=== PATIENT | female | born 1955 | race Caucasian/White ===

== ENCOUNTER 2019-10-01 14:54 | Inpatient (IN) | payer MEDICARE, MEDICAID ==
[~2019-10-01] VITALS: Ht 152.4 cm; Wt 41.7 kg
[~2019-10-01 14:54] MED LIST: AMOXICILLIN500 MG PO; AUGMENTIN 500M500 MG PO; MOTRIN400 MG PO
[2019-10-01 15:03] VITALS: BP 175/82
[2019-10-01] MEDS ORDERED: ATIVAN1 MG ORAL (15:08)
[2019-10-01] MEDS ORDERED: Thorazine ORAL (15:08)
[2019-10-01] MEDS ORDERED: ZOLOFT25 MG ORAL (15:08)
--- NOTE | 2019-10-01 15:10 | NUR ---
ED Nurse Note: patient brought into ED by ambulance from home c/o nausea and vomiting since 09/26/19, c/o abdominal pain, patient c/o back pain and buttocks pain as well. patient is alert awake x4, on a hospital gown, on a kiln remover. patient reports vaginal bleeding red blood for 1 month. patient reports she could not see her OBGYN.
[2019-10-01] MEDS ORDERED: Lidocaine 2% Visc 15ml soln ORAL ONE (15:15)
[2019-10-01] MEDS ORDERED: Mylanta II UD 30ml ORAL ONE (15:15)
[2019-10-01] MEDS ORDERED: Dicyclomine HCl 10mg/5ml oral soln ORAL ONE (15:15)
--- NOTE | 2019-10-01 15:18 | Emergency Room Report ---
History of Present Illness General Chief Complaint: Nausea, Vomiting, and Diarrhea Source: Patient Present Illness HPI 63-year-old female presents ED for abdominal pain. Started 5 days ago. Cramping, 7 out of 10, nonradiating. Also complaining of vomiting diarrhea. Denies recent travel. Denies recent antibiotic use. No other aggravating relieving factors. Denies any other associated symptoms Allergies: Coded Allergies: PENICILLINS (Verified Allergy, Intermediate, rash, 07/28/12) BEET (Verified Allergy, Unknown, 10/01/19) PROPOFOL (Verified Allergy, Unknown, 10/01/19) Patient History Past Medical History: psych hx Past Surgical History: none Pertinent Family History: none Social History: Denies: smoking, alcohol use, drug use Now: No Immunizations: UTD Reviewed Nursing Documentation: PMH: Agreed; PSxH: Agreed Nursing Documentation-PMH Past Medical History: No History, Except For History Of Psychiatric Problem: Yes - anxiety, depression, schizophrenia Review of Systems All Other Systems: negative except mentioned in HPI Physical Exam Vital Signs Date Time Temp Pulse Resp B/P (MAP) Pulse Ox O2 Delivery O2 Flow Rate FiO2 10/01/19 15:03 98.8 90 13 175/82 99 Room Air Sp02 EP Interpretation: reviewed, normal General Appearance: no apparent distress, alert, GCS 15, non-toxic, thin Head: normocephalic, atraumatic Eyes: bilateral eye normal inspection, bilateral eye PERRL ENT: hearing grossly normal, normal pharynx, no angioedema, normal voice Neck: full range of motion, supple/symm/no masses Respiratory: chest non-tender, lungs clear, normal breath sounds, speaking full sentences Cardiovascular #1: regular rate, rhythm, no edema Cardiovascular #2: 2+ carotid (R), 2+ carotid (L), 2+ radial (R), 2+ radial (L) , 2+ dorsalis pedis (R), 2+ dorsalis pedis (L) Gastrointestinal: normal bowel sounds, soft, non-distended, no guarding, no rebound, tenderness Rectal: deferred Genitourinary: normal inspection, no CVA tenderness Musculoskeletal: back normal, normal range of motion, gait/station normal, non- tender Neurologic: alert, motor strength/tone normal, oriented x3, sensory intact, responsive, speech normal Psychiatric: judgement/insight normal, memory normal, mood/affect normal, no suicidal/homicidal ideation Reflexes: 3+ bicep (R), 3+ bicep (L), 3+ tricep (R), 3+ tricep (L), 3+ knee (R) , 3+ knee (L) Skin: no rash Lymphatic: no adenopathy Medical Decision Making Diagnostic Impression: Primary Impression: Colitis Additional Impressions: Renal failure Qualified Codes: N19 - Unspecified kidney failure Vaginal bleeding Fibroid Dehydration ER Course Hospital Course 63-year-old female presents ED with abdominal pain, vomiting and diarrhea. also has vaginal bleeding. differential colitis, anemia, dehydration Clinical course Placed on stretcher. After initial history and physical I ordered labs, IV fluids, ultrasound Labs - leukocytosis noted, Hb/Hct stable. Na 126, BUN 98, Cr 9.1 US - fibroid CT A/P - no acute process identified Patient given IV hydration. Given antibiotics. Case discussed with Dr. Martin and he agreed to accept the patient to his service for further care and support I feel this is a highly complex case requiring extensive working including EKG/ Rhythm strip, Xray/CT/US, Blood/urine lab work, repeat exams while in ED, and administration of strong opiates/narcotics for pain control, admission to hospital or close patient follow up. Diagnosis - colitis, renal failure, vaginal bleeding, fibroid, dehydration Patient admitted to telemetry in serious condition Labs Test 10/01/19 15:10 10/01/19 15:55 White Blood Count 20.1 K/UL (4.8-10.8) Red Blood Count 3.94 M/UL (4.20-5.40) Hemoglobin 10.3 G/DL (12.0-16.0) Hematocrit 30.7 % (37.0-47.0) Mean Corpuscular Volume 78 FL (80-99) Mean Corpuscular Hemoglobin 26.0 PG (27.0-31.0) Mean Corpuscular Hemoglobin Concent 33.4 G/DL (32.0-36.0) Red Cell Distribution Width 13.4 % (11.6-14.8) Platelet Count 318 K/UL (150-450) Mean Platelet Volume 7.4 FL (6.5-10.1) Neutrophils (%) (Auto) % (45.0-75.0) Lymphocytes (%) (Auto) % (20.0-45.0) Monocytes (%) (Auto) % (1.0-10.0) Eosinophils (%) (Auto) % (0.0-3.0) Basophils (%) (Auto) % (0.0-2.0) Differential Total Cells Counted 100 Neutrophils % (Manual) 90 % (45-75) Lymphocytes % (Manual) 5 % (20-45) Monocytes % (Manual) 3 % (1-10) Eosinophils % (Manual) 1 % (0-3) Basophils % (Manual) 1 % (0-2) Band Neutrophils 0 % (0-8) Platelet Estimate Adequate Platelet Morphology Normal Red Blood Cell Morphology Normal Prothrombin Time 10.7 SEC (9.30-11.50) Prothromb Time International Ratio 1.0 (0.9-1.1) Activated Partial Thromboplast Time 32 SEC (23-33) Sodium Level 126 MMOL/L (136-145) Potassium Level 4.6 MMOL/L (3.5-5.1) Chloride Level 89 MMOL/L (98-107) Carbon Dioxide Level 16 MMOL/L (21-32) Anion Gap 21 mmol/L (5-15) Blood Urea Nitrogen 91 mg/dL (7-18) Creatinine 9.8 MG/DL (0.55-1.30) Estimat Glomerular Filtration Rate 4.0 mL/min (>60) Glucose Level 116 MG/DL (74-106) Calcium Level 7.9 MG/DL (8.5-10.1) Total Bilirubin 0.3 MG/DL (0.2-1.0) Aspartate Amino Transf (AST/SGOT) 31 U/L (15-37) Alanine Aminotransferase (ALT/SGPT) 14 U/L (12-78) Alkaline Phosphatase 98 U/L (46-116) Total Protein 6.4 G/DL (6.4-8.2) Albumin 2.8 G/DL (3.4-5.0) Globulin 3.6 g/dL Albumin/Globulin Ratio 0.8 (1.0-2.7) Lipase 82 U/L (73-393) Urine Color Pale yellow Urine Appearance Clear Urine pH 6.5 (4.5-8.0) Urine Specific [place] 1.005 (1.005-1.035) Urine Protein Negative (NEGATIVE) Urine Glucose (UA) Negative (NEGATIVE) Urine Ketones Negative (NEGATIVE) Urine Blood 1+ (NEGATIVE) Urine Nitrite Negative (NEGATIVE) Urine Bilirubin Negative (NEGATIVE) Urine Urobilinogen Normal MG/DL (0.0-1.0) Urine Leukocyte Esterase Negative (NEGATIVE) Urine RBC 0-2 /HPF (0 - 2) Urine WBC 0-2 /HPF (0 - 2) Urine Squamous Epithelial Cells Few /LPF (NONE/OCC) Urine Bacteria Few /HPF (NONE) CT/MRI/US Diagnostic Results CT/MRI/US Diagnostic Results #1: Imaging Test Ordered: Pelvic US Impression Findings: There is a fundal hypoechoic lesion measuring approximately 2.2 x 2.8 cm probably a fibroid. The endometrium is 9 mm and appears normal. Neither ovary is identified. There is a moderate degree of free fluid within the cul-de-sac. The uterus measures approximately 9 x 6.6 x 4.5 cm. IMPRESSION: Suspected fundal fibroid. Nonidentification of the ovaries Ascites. This should be further evaluated since the patient is postmenopausal. CT/MRI/US Diagnostic Results #2: Imaging Test Ordered: CT A/P Impression FINDINGS: Lungs: Hyperlucent patchy areas the lung bases consistent with emphysema noted. Patient is cachectic. There is moderate to severe bilateral hydroureteronephrosis. The ureters are poorly demonstrated on this study. There is a Alvarado catheter present within the urinary bladder which is also poorly demonstrated. There is air in the bladder. The patient is extremely cachectic. There is very little intra- abdominal fat which limits evaluation and no oral contrast or intravenous contrast was given further limiting evaluation. There is a mild degree of ascites noted around the liver and suggestion of ascites along the right paracolic gutter and pelvis. The uterus appears to be present but not evaluated well. Loops of bowel are present but the not evaluated well and there is no compelling evidence for bowel obstruction. Aortoiliac calcifications are present. Solid organs are not evaluated adequately. IMPRESSION: Moderate to severe bilateral hydroureteronephrosis. The level of obstruction is unknown and not elucidated adequately on this examination with poor demonstration of the ureters. No obvious stones seen. The urinary bladder is not distended to account for this. Alvarado catheter is present but the bladder is not well demonstrated either. Mild ascites. Emphysematous changes at the lung bases. Anasarca Cachexia Very limited study due to combination of factors including the lack of intravenous and oral contrast as well as cachexia and the absence of intra-abdominal fat. Liver: Unremarkable Gallbladder/biliary system: No gallstones are identified. There is no evidence of intrahepatic or extrahepatic biliary ductal dilatation. Spleen: Unremarkable Pancreas: Unremarkable Kidneys/Bladder: No definite stone or hydronephrosis are identified. The urinary bladder is unremarkable.. Adrenal glands: Unremarkable Bowel: Unremarkable. Aorta/IVC: Unremarkable Peritoneum: There is no free fluid. Bones: Unremarkable IMPRESSION: No acute findings Note: Evaluation of solid organs is limited on non contrast imaging. The CT scanner at [facility] is accredited by the [employer] and the scans are performed using dose optimization techniques as appropriate to a performed exam including Automatic Exposure control. Last Vital Signs Date Time Temp Pulse Resp B/P (MAP) Pulse Ox O2 Delivery O2 Flow Rate FiO2 10/01/19 15:03 98.8 90 13 175/82 (113) 99 Room Air Status: improved Disposition: ADMITTED INPATIENT Condition: Serious Milind Jeff MD Oct 01, 2019 15:18
--- NOTE | 2019-10-01 15:24 | NUR ---
ED Nurse Note: pelvic U/S being done at bedside.
[2019-10-01] MEDS: Morphine Sulfate 2mg/ml Inj(IV/IM USE ONLY) IVP ONE ×2 (15:30→15:42)
[2019-10-01 15:32] LABS: HEMATOCRIT 30.7 % (37.0-47.0); HEMOGLOBIN 10.3 G/DL (12.0-16.0); MEAN CORPUSCULAR VOLUME 78 FL (80-99); PLATELET COUNT 318 K/UL (150-450); RED BLOOD COUNT 3.94 M/UL (4.20-5.40); RED CELL DISTRIBUTION WIDTH 13.4 % (11.6-14.8); WHITE BLOOD COUNT 20.1 K/UL (4.8-10.8)
[2019-10-01 15:41] LABS: ALANINE AMINOTRANSFERASE 14 U/L (12-78); ALBUMIN 2.8 G/DL (3.4-5.0); ALBUMIN/GLOBULIN RATIO 0.8 (1.0-2.7); ALKALINE PHOSPHATASE 98 U/L (46-116); ANION GAP 21 mmol/L (5-15); ASPARTATE AMINO TRANSFERASE 31 U/L (15-37); BILIRUBIN,TOTAL 0.3 MG/DL (0.2-1.0); BLOOD UREA NITROGEN 91 mg/dL (7-18); CALCIUM 7.9 MG/DL (8.5-10.1); CARBON DIOXIDE 16 MMOL/L (21-32); CHLORIDE 89 MMOL/L (98-107); CREATININE 9.8 MG/DL (0.55-1.30); POTASSIUM 4.6 MMOL/L (3.5-5.1); SODIUM 126 MMOL/L (136-145)
[2019-10-01 16:35] LABS: APPEARANCE,URINE CLEAR; BILIRUBIN, URINE NEGATIVE (NEGATIVE); COLOR,URINE PALE YELLOW; GLUCOSE, URINE (UA) NEGATIVE (NEGATIVE); KETONES,URINE NEGATIVE (NEGATIVE); LEUKOCYTE ESTERASE ,URINE NEGATIVE (NEGATIVE); NITRITE,URINE NEGATIVE (NEGATIVE); PH,URINE 6.5 (4.5-8.0); PROTEIN,URINE NEGATIVE (NEGATIVE); UROBILINOGEN,URINE NORMAL MG/DL (0.0-1.0)
--- NOTE | 2019-10-01 16:40 | NUR ---
ED Nurse Note: patient taken to CT scan
--- NOTE | 2019-10-01 16:47 | NUR ---
ED Nurse Note: patient came back from CT scan via gurney.
--- NOTE | 2019-10-01 16:59 | Diagnostic Imaging Report ---
Indication:Lower abdominal and pelvic pain Technique: Grayscale and duplex Doppler imaging of the pelvis performed utilizing a transabdominal and endovaginal scan. Comparison: None Findings: There is a fundal hypoechoic lesion measuring approximately 2.2 x 2.8 cm probably a fibroid. The endometrium is 9 mm and appears normal. Neither ovary is identified. There is a moderate degree of free fluid within the cul-de-sac. The uterus measures approximately 9 x 6.6 x 4.5 cm. IMPRESSION: Suspected fundal fibroid. Nonidentification of the ovaries Ascites. This should be further evaluated since the patient is postmenopausal.
--- NOTE | 2019-10-01 17:04 | NUR ---
ED Nurse Note: patient is having a vaginal bleeding, red clots noted, Dr. Jeff at bedside examining as well.
--- NOTE | 2019-10-01 17:10 | Diagnostic Imaging Report ---
INDICATION: Abdominal pain TECHNIQUE: Continuous helical transaxial imaging of the abdomen and pelvis was obtained from the lung bases to the pubic symphysis. No intravenous contrast was administered. Coronal 2-D reformats were also obtained. Automatic Exposure Control was utilized. Total Dose length Product (DLP): 129.[address] Dose Index Volume (CTDIvol): 2.8 mGy Comparison: none FINDINGS: Lungs: Hyperlucent patchy areas the lung bases consistent with emphysema noted. Patient is cachectic. There is moderate to severe bilateral hydroureteronephrosis. The ureters are poorly demonstrated on this study. There is a Alvarado catheter present within the urinary bladder which is also poorly demonstrated. There is air in the bladder. The patient is extremely cachectic. There is very little intra-abdominal fat which limits evaluation and no oral contrast or intravenous contrast was given further limiting evaluation. There is a mild degree of ascites noted around the liver and suggestion of ascites along the right paracolic gutter and pelvis. The uterus appears to be present but not evaluated well. Loops of bowel are present but the not evaluated well and there is no compelling evidence for bowel obstruction. Aortoiliac calcifications are present. Solid organs are not evaluated adequately. IMPRESSION: Moderate to severe bilateral hydroureteronephrosis. The level of obstruction is unknown and not elucidated adequately on this examination with poor demonstration of the ureters. No obvious stones seen. The urinary bladder is not distended to account for this. Alvarado catheter is present but the bladder is not well demonstrated either. Mild ascites. Emphysematous changes at the lung bases. Anasarca Cachexia Very limited study due to combination of factors including the lack of intravenous and oral contrast as well as cachexia and the absence of intra-abdominal fat. Liver: Unremarkable Gallbladder/biliary system: No gallstones are identified. There is no evidence of intrahepatic or extrahepatic biliary ductal dilatation. Spleen: Unremarkable Pancreas: Unremarkable Kidneys/Bladder: No definite stone or hydronephrosis are identified. The urinary bladder is unremarkable.. Adrenal glands: Unremarkable Bowel: Unremarkable. Aorta/IVC: Unremarkable Peritoneum: There is no free fluid. Bones: Unremarkable IMPRESSION: No acute findings Note: Evaluation of solid organs is limited on non contrast imaging. The CT scanner at [facility] is accredited by the [employer] and the scans are performed using dose optimization techniques as appropriate to a performed exam including Automatic Exposure control.
--- NOTE | 2019-10-01 17:56 | NUR ---
ED Nurse Note: dinner tray provided for the patient as ordered by Dr Jeff
--- NOTE | 2019-10-01 18:58 | NUR ---
ED Nurse Note: patient's pad changed, patient had 1 pad saturated with red blood. patient kept clean and dry, blankets provided as requested. Dr. Jeff notified for patient reporting +1 swelling on bilateral ankle. Dr Jeff notified for patient's urine output.
--- NOTE | 2019-10-01 19:08 | NUR ---
HAND-OFF: Report given to Trey MITTAL.
[2019-10-01 19:15] VITALS: BP 170/90
--- NOTE | 2019-10-01 19:16 | NUR ---
ED Nurse Note: received report from Edie MITTAL. pt vss, nad, calm and resting in bed. will continue to monitor patient
--- NOTE | 2019-10-01 20:06 | NUR ---
ED Nurse Note: damian removed per ermd order
--- NOTE | 2019-10-01 20:09 | NUR ---
ED Nurse Note: gave report to rn for tele. patient is on bedside comode
--- NOTE | 2019-10-01 20:15 | NUR ---
TRANSFER TO FLOOR: Patient transferred to accompanied by lele rees via [facility] in stable condition as ordered, per dr. Martin . Report given to rn for . Belongings sent with patient
[2019-10-01 20:30] VITALS: BP 152/81
--- NOTE | 2019-10-01 20:30 | NUR ---
NURSE NOTES: Received report from DAXA Yang. Patient was transferred from ED to Telemetry via gurney accompanied by 2 staff member without any incident. Patient is awake, not in cardiorespiratory distress noted, able to make needs known. A/Ox4. Denies pain at this time. Patient was transferred to hospital bed via draw sheet method. Placed on tele box, SSSS Addendum: 10/02/19 at 0250 by Mulu Gonzalez RN Wrong entry
--- NOTE | 2019-10-01 20:30 | NUR ---
NURSE NOTES: Received report from DAXA Yang. Patient was transferred from ED to Telemetry via gurney accompanied by 2 staff member without any incident. Patient is awake, not in cardiorespiratory distress noted, able to make needs known. A/Ox4. Denies pain at this time. Patient was transferred to hospital bed via draw sheet method. Placed on tele box, SR on the monitor, 96 bpm. Checked IV site and flushed. No erythema, bleeding or infiltration noted. Belongings list checked with transferring RN. Body assessment done without any skin issues. Bed at lowest position, brakes on, siderailsx2. Call light within reach. Will continue to monitor. Dr. Margaret Martin placed in admitting orders. Noted and carried out.
[2019-10-01] MEDS: Sertraline 50mg tab ORAL SCH (21:51)
[2019-10-01] MEDS: LORazepam 1mg tab ORAL PRN (21:52)
[2019-10-01] MEDS: chlorproMAZINE 10mg tab ORAL SCH (21:52)
[2019-10-01] MEDS: metroNIDAZOLE 500mg tab ORAL SCH (22:08)
[2019-10-02] VITALS: BP 139/76
--- NOTE | 2019-10-02 02:53 | NUR ---
NURSE NOTES: Resting throughout the night. No significant change of condition noted. Will continue to monitor.
[2019-10-02 04:00] VITALS: BP 130/72
[2019-10-02] MEDS ORDERED: Ciprofloxacin 500mg tab ORAL SCH (06:00)
[2019-10-02] MEDS: metroNIDAZOLE 500mg tab ORAL SCH ×3 (06:45→21:12)
--- NOTE | 2019-10-02 07:15 | NUR ---
NURSE NOTES: pt in bed resting, food tray is at bedside. Pt AOX4, she is not reporting any pain. Continued personnel monitor, no signs of cardiac or respiratory distress at this time. Bed is locked and in lowest position, bed alarm is on, side rails up x2. Call light is within reach. Will continue to monitor pt.
[2019-10-02 07:16] LABS: ANION GAP 20 mmol/L (5-15); BLOOD UREA NITROGEN 85 mg/dL (7-18); CALCIUM 6.8 MG/DL (8.5-10.1); CARBON DIOXIDE 13 MMOL/L (21-32); CHLORIDE 95 MMOL/L (98-107); CHOLESTEROL 98 MG/DL (< 200); CREATININE 9.7 MG/DL (0.55-1.30); HDL CHOLESTEROL 23 MG/DL (40-60); POTASSIUM 4.7 MMOL/L (3.5-5.1); SODIUM 128 MMOL/L (136-145); TRIGLYCERIDES 77 MG/DL (30-150)
--- NOTE | 2019-10-02 07:16 | NUR ---
HAND-OFF: Report given to DAXA Baird. Plan of care endorsed.
[2019-10-02 08:00] VITALS: BP 128/75
--- NOTE | 2019-10-02 11:32 | General Progress Note ---
Assessment/Plan Assessment/Plan: GI CONSULT Assessment - Microcytic anemia - N/V, D, Abd pain - improved - abdominal distention on exam - GNR bacteremia - Renal failure - hyponatremia - psych d/o Recommendations - IVF - Renal w/u - check Fe - check OB - abx - EGD / colon when improved - stool cultures - EGD/Colon once better Thank you Corazon Silva MD Subjective Allergies: Coded Allergies: PENICILLINS (Verified Allergy, Intermediate, rash, 07/28/12) BEET (Verified Allergy, Unknown, 10/01/19) PROPOFOL (Verified Allergy, Unknown, 10/01/19) Objective Last 24 Hour Vital Signs Date Time Temp Pulse Resp B/P (MAP) Pulse Ox O2 Delivery O2 Flow Rate FiO2 10/02/19 04:00 96.8 99 18 130/72 (91) 98 10/02/19 04:00 105 10/02/19 00:00 125 10/02/19 00:00 97.0 120 18 139/76 (97) 97 10/01/19 22:00 Room Air 10/01/19 20:30 96.3 91 18 152/81 (104) 98 10/01/19 20:30 96 10/01/19 20:15 98.4 97 14 158/83 98 Room Air 10/01/19 19:15 98.4 97 14 170/90 98 Room Air 10/01/19 15:03 98.8 90 13 175/82 (113) 99 Room Air 10/01/19 15:03 98.8 90 13 175/82 99 Room Air Intake and Output 10/01/19 10/02/19 19:00 07:00 Intake Total 120 ml Output Total 100 ml Balance -100 ml 120 ml Intake Oral 120 ml Output Urine Total 100 ml # Voids 4 # Bowel Movements 5 Laboratory Tests 10/01/19 15:10: White Blood Count 20.1H, Red Blood Count 3.94L, Hemoglobin 10.3L, Hematocrit 30.7L, Mean Corpuscular Volume 78L, Mean Corpuscular Hemoglobin 26.0L, Mean Corpuscular Hemoglobin Concent 33.4, Red Cell Distribution Width 13.4, Platelet Count 318, Mean Platelet Volume 7.4, Neutrophils (%) (Auto) , Lymphocytes (%) ( Auto) , Monocytes (%) (Auto) , Eosinophils (%) (Auto) , Basophils (%) (Auto) , Differential Total Cells Counted 100, Neutrophils % (Manual) 90H, Lymphocytes % (Manual) 5L, Monocytes % (Manual) 3, Eosinophils % (Manual) 1, Basophils % ( Manual) 1, Band Neutrophils 0, Platelet Estimate Adequate, Platelet Morphology Normal, Red Blood Cell Morphology Normal, Prothrombin Time 10.7, Prothromb Time International Ratio 1.0, Activated Partial Thromboplast Time 32, Sodium Level 126L, Potassium Level 4.6, Chloride Level 89L, Carbon Dioxide Level 16L, Anion Gap 21H, Blood Urea Nitrogen 91H, Creatinine 9.8H, Estimat Glomerular Filtration Rate 4.0, Glucose Level 116H, Calcium Level 7.9L, Total Bilirubin 0.3 , Aspartate Amino Transf (AST/SGOT) 31, Alanine Aminotransferase (ALT/SGPT) 14, Alkaline Phosphatase 98, Total Protein 6.4, Albumin 2.8L, Globulin 3.6, Albumin/ Globulin Ratio 0.8L, Lipase 82 10/01/19 15:55: Urine Color Pale yellow, Urine Appearance Clear, Urine pH 6.5, Urine Specific [place] 1.005, Urine Protein Negative, Urine Glucose (UA) Negative, Urine Ketones Negative, Urine Blood 1+H, Urine Nitrite Negative, Urine Bilirubin Negative, Urine Urobilinogen Normal, Urine Leukocyte Esterase Negative, Urine RBC 0-2, Urine WBC 0-2, Urine Squamous Epithelial Cells Few, Urine Bacteria Few 10/01/19 17:30: Lactic Acid Level 0.60 10/02/19 05:10: Sodium Level 128L, Potassium Level 4.7, Chloride Level 95L, Carbon Dioxide Level 13L, Anion Gap 20H, Blood Urea Nitrogen 85H, Creatinine 9.7H, Estimat Glomerular Filtration Rate 4.1, Glucose Level 92, Calcium Level 6.8L, Hemoglobin A1c 5.4, Triglycerides Level 77, Cholesterol Level 98, LDL Cholesterol 58, HDL Cholesterol 23L, Cholesterol/HDL Ratio 4.3, Thyroid Stimulating Hormone (TSH) 1.088 Height (Feet): 5 Height (Inches): 0.00 Weight (Pounds): 92 Corazon Silva MD Oct 02, 2019 11:32
--- NOTE | 2019-10-02 11:40 | History & Physical ---
History and Physical History & Physicial HP dictated # [id number] Everardo Martin MD Oct 02, 2019 11:40
[2019-10-02 12:00] VITALS: BP 133/85
--- NOTE | 2019-10-02 13:34 | NUR ---
RD ASSESSMENT & RECOMMENDATIONS SEE CARE ACTIVITY FOR COMPLETE ASSESSMENT DAILY ESTIMATED NEEDS: Needs based on Renal 42.1kg 25-35 kcals/kg 2723-3009 total kcals .8-1.2 g protein/kg 34-50 g total protein Fluid per MD NUTRITION DIAGNOSIS: Altered nutrition related lab values r/t clinical status, renal failure as evidenced by low Na (128), elev BUN (85), elev Creat (9.7). CURRENT DIET: Full liquid PO DIET RECOMMENDATIONS: Advance as able to Regular diet/ texture per TRAFFIC AGENT ADDITIONAL RECOMMENDATIONS: 1) Monitor renal labs/ need for dietary restriction Monitor for fluid restriction (Na trending up 128) 2) Obtain a standing weight EMR wt: 82# Bed wt: 92# 3) Add ensure to meals, monitor lytes and need for Nepro.
[2019-10-02] MEDS ORDERED: Isovue-300 100ml vial INJ PRN (14:06)
[2019-10-02] MEDS ORDERED: Lidocaine 1% Plain 30 ml INJ PRN (14:06)
[2019-10-02] MEDS: Aztreonam Inj 0.5 GM in D5W 55 ML IVPB SCH ×2 (14:52→22:26)
[2019-10-02 16:00] VITALS: BP 145/83
--- NOTE | 2019-10-02 16:30 | History and Physical Report ---
DATE OF ADMISSION: 10/01/2019 CHIEF COMPLAINT: Abdominal pain, some vomiting and diarrhea. HISTORY OF PRESENT ILLNESS: This is a 63-year-old female with history of schizophrenia. She came to the emergency room for abdominal pain. She said it was only 1 day, but per records from the ER, she was complaining about 5-day history of cramping and some diarrhea and vomiting. She was admitted for further workup. Meanwhile, her blood cultures came back positive for gram negatives. So, she was admitted with diagnosis of sepsis. 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 It has been going on for a few months now. She denies history of any cancers, hypertension, diabetes, or heart problems. MEDICATIONS: Reviewed in EMR. ALLERGIES: Penicillin, propofol, and beet. SOCIAL HISTORY: The patient smokes a pack a day. Has been smoking for many years. No history of alcohol abuse. She states she lives by herself and takes care of herself. REVIEW OF SYSTEMS: As above. PHYSICAL EXAMINATION: GENERAL: The patient is a 63-year-old female, in no acute distress. VITAL SIGNS: Blood pressure is 113/72, pulse 99, temperature 96.8. HEENT: Pale conjunctivae. Anicteric sclerae. NECK: Supple. LUNGS: Clear to auscultation. HEART: S1, S2 without murmurs, rubs. ABDOMEN: Soft, nontender. EXTREMITIES: No cyanosis or edema. LABORATORY FINDINGS: The CBC shows a WBC of 20,000, hematocrit 30.7, hemoglobin is 10.3, platelets 318,000. Chemistry panel shows a sodium of 128, potassium 4.7, chloride 95, BUN is 85, creatinine 9.7, glucose is 92. ASSESSMENT: This is a 63-year-old female who is admitted with gram-negative bacteremia, sepsis. Possible source is GI tract. The patient had a benign urine, so I doubt this is caused by UTI. She has also acute renal failure, likely prerenal azotemia although ATN cannot be ruled out completely. She has hyponatremia with volume depletion. She has history of vaginal bleed, unclear etiology. needs to be ruled out. PLAN: The patient was started on IV fluids. IV antibiotics. The patient will be seen by GI as well as ID consultants. Labs will be followed closely. Further imaging study may be needed to find out the source of infection. Case was discussed with Dr. Silva. Everardo Martin M.D. DR: MIKE JOB#: [id number] CC:
--- NOTE | 2019-10-02 16:51 | Diagnostic Imaging Report ---
Indication: Abdominal distention Technique: Supine view of the abdomen Comparison: none Findings: There is moderate amount of gas in nondilated colon. Small bowel gas pattern is unremarkable. No masses or unusual calcifications Impression: No acute process
--- NOTE | 2019-10-02 19:15 | NUR ---
NURSE NOTES: Received report from DAXA Baird. Patient is asleep, arousable to name, lying in semi beck's; resting comfortably. A/Ox4. Denies pain at this time. No signs of acute distress noted. Checked IV site and flushed. No signs of erythema, bleeding or infiltration noted. Bed at lowest position, brakes on, siderailsx2. Call light within reach. Will continue to monitor.
--- NOTE | 2019-10-02 19:20 | NUR ---
NURSE NOTES: Received report from DAXA Baird. Patient is asleep, arousable to name, lying in semi beck's; resting comfortably. A/Ox4. Denies pain at this time. No signs of acute distress noted. Checked IV site and flushed. No erythema, bleeding or infiltration noted. Bed at lowest position, brakes on, siderailsx2. Call light within reach. Will continue to monitor.
--- NOTE | 2019-10-02 19:38 | NUR ---
HAND-OFF: Report given to Mulu/Jose. pt NPO after midnight consent has been signed for tomorrow's procedure.
[2019-10-02 20:00] VITALS: BP 144/68
[2019-10-02] MEDS: chlorproMAZINE 10mg tab ORAL SCH (21:12)
[2019-10-02] MEDS: LORazepam 1mg tab ORAL PRN (21:12)
[2019-10-02] MEDS: Sertraline 50mg tab ORAL SCH (21:12)
[2019-10-03] VITALS (7 sets, daily range): BP systolic 133–169; BP diastolic 77–92
--- NOTE | 2019-10-03 | NUR ---
NURSE NOTES: Placed patient on NPO at midnight.
--- NOTE | 2019-10-03 00:30 | Consultation ---
DATE OF CONSULTATION: 10/02/2019 GASTROENTEROLOGY CONSULTATION CONSULTING PHYSICIAN: Corazon Silva M.D. CHIEF COMPLAINT: I was asked to see this patient by Dr. Everardo Martin for evaluation of anemia and gastrointestinal symptoms. HISTORY OF PRESENT ILLNESS: The patient is a 63-year-old white woman who states she was in her usual state of health until about 5 days ago when she started noticing abdominal pain, nausea, vomiting, and diarrhea. She has had no contacts with the same symptoms. She came to the hospital emergency room for evaluation where she was found to be in renal failure and was also found to have profound anemia and microcytosis. The patient has not had a colonoscopy or endoscopy. She denies any hematochezia. She does have some abdominal distention still and is mildly uncomfortable from the gas feeling. PAST MEDICAL HISTORY: History of schizophrenia. FAMILY HISTORY: Positive for hypertension in mother. SOCIAL HISTORY: The patient is single. She smokes one pack of cigarettes a day. Does not drink alcohol. ALLERGIES: Penicillin as well as propofol. REVIEW OF SYSTEMS: Otherwise negative. PHYSICAL EXAMINATION: GENERAL: A well-developed, well-nourished woman, seen in her room. HEENT: Normocephalic and atraumatic. Sclerae anicteric. Oropharynx clear. NECK: Supple. CHEST: Clear to auscultation. CARDIOVASCULAR: Revealed a regular rate. ABDOMEN: Mildly distended and tympanitic. EXTREMITIES: Revealed no edema. LABORATORY DATA: Noted. ASSESSMENT: This patient presents with nausea, vomiting, diarrhea, dehydration, renal failure, hyponatremia, and microcytic anemia. She will need additional antibiotics and fluid resuscitation since her blood cultures already have grown gram-negative rods and therefore, she is septic and bacteremic. IV fluids can also be given with saline based constituents to both improvement of renal failure and also raise her sodium. Iron can be checked and given intravenously as needed. She will require an eventual endoscopy and colonoscopy to evaluate the GI tract, but I would hold off on that until her overall status is more stabilized. I will check her stools for culture and Clostridium difficile. Nutrition can be given by mouth as tolerated and advanced until the time of colonoscopy. RECOMMENDATIONS: Per above discussion and per orders written in the chart. Thank you for asking me to participate in the care of this patient. Corazon Silva M.D. DR: GALE JOB#: [id number] CC:
--- NOTE | 2019-10-03 02:05 | NUR ---
NURSE NOTES: Resting throughout the night. No significant change of condition noted. Will continue to monitor.
[2019-10-03] MEDS: metroNIDAZOLE 500mg tab ORAL SCH ×3 (06:18→20:56)
[2019-10-03] MEDS: Aztreonam Inj 0.5 GM in D5W 55 ML IVPB SCH ×3 (06:19→22:14)
[2019-10-03 07:07] LABS: HEMATOCRIT 24.9 % (37.0-47.0); HEMOGLOBIN 8.5 G/DL (12.0-16.0); MEAN CORPUSCULAR VOLUME 78 FL (80-99); PLATELET COUNT 274 K/UL (150-450); RED BLOOD COUNT 3.19 M/UL (4.20-5.40); RED CELL DISTRIBUTION WIDTH 12.2 % (11.6-14.8); WHITE BLOOD COUNT 14.6 K/UL (4.8-10.8)
[2019-10-03 07:13] LABS: % IRON SATURATION 16 % (15-50); IRON 34 ug/dL (50-175); TOTAL IRON BINDING CAPACITY 219 ug/dL (250-450)
[2019-10-03 07:29] LABS: ALANINE AMINOTRANSFERASE 15 U/L (12-78); ALBUMIN 2.2 G/DL (3.4-5.0); ALBUMIN/GLOBULIN RATIO 0.7 (1.0-2.7); ANION GAP 22 mmol/L (5-15); ASPARTATE AMINO TRANSFERASE 21 U/L (15-37); BILIRUBIN,TOTAL 0.3 MG/DL (0.2-1.0); BLOOD UREA NITROGEN 87 mg/dL (7-18); CALCIUM 7.3 MG/DL (8.5-10.1); CARBON DIOXIDE 11 MMOL/L (21-32); CHLORIDE 98 MMOL/L (98-107); POTASSIUM 4.7 MMOL/L (3.5-5.1); SODIUM 131 MMOL/L (136-145)
--- NOTE | 2019-10-03 07:34 | NUR ---
HAND-OFF: Report given to DAXA Baird. Plan of care endorsed.
[2019-10-03 07:40] LABS: ALKALINE PHOSPHATASE 91 U/L (46-116)
--- NOTE | 2019-10-03 07:58 | NUR ---
NURSE NOTES: pt NPO and ready for procedure. Pt is alert and oriented X4. No complains of pain at this time. 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 Bed in lowest position locked, rails up x2, bed alarm on for safety. Call light within reach. Will continue to monitor pt and follow plans of care.
--- NOTE | 2019-10-03 10:10 | Diagnostic Imaging Report ---
Indication: Acute renal failure Technique: Grayscale and duplex images of the kidneys, retroperitoneum, and bladder were obtained. Comparison: No comparison sonograms. Reference made to abdomen ultrasound dated 10/01/2019 Findings: Right kidney measures 11.2 cm in length. Left kidney measures 14 cm in length. Both kidneys demonstrate normal echogenicity. There is moderate to severe right, moderate left hydronephrosis. No focal abnormality. Normal inferior vena cava. Bladder is normal. Small amount of free intraperitoneal fluid is seen in the bladder Impression: Bilateral hydronephrosis, moderate to severe, etiology not demonstrated, also described on recent CT scan Incidental finding of trace ascites fluid.
--- NOTE | 2019-10-03 10:45 | Consultation ---
DATE OF CONSULTATION: 10/02/2019 INFECTIOUS DISEASE CONSULTATION CONSULTING PHYSICIAN: Gallito Martin M.D. PRIMARY ATTENDING PHYSICIAN: Everardo Martin M.D. REASON FOR CONSULT: Gram-negative sepsis. HISTORY OF PRESENT ILLNESS: This is a 63-year-old white female, admitted last night from home because of abdominal pain for 5 days, vomiting, and diarrhea alternating with constipation. Abdominal pain was 7/10 at the time of admission. The patient had leukocytosis of 20,000 and tachycardia with heart rate up to 125. She has abnormal vaginal bleeding. She states that she had menopause at the age of 49. No signs of anemia or acute renal failure. PAST MEDICAL HISTORY: Nothing significant, but the patient did not see any doctor for a while. ALLERGIES: Allergic to penicillin, propofol, and yeast. Allergy to penicillin is severe with shortness of breath. MEDICATIONS: Getting Cipro, Flagyl, sertraline, Thorazine, and temazepam. SOCIAL HISTORY: The patient is smoking for a long time. Currently, smoking 1 pack of cigarettes daily. Denies alcohol or drug abuse. Lives alone and is single. REVIEW OF SYSTEMS: gaining weight. No fever, no chills, but feels cold. No nausea. No vomiting. Alternating constipation and diarrhea, decrease in urine flow, vaginal bleeding. PHYSICAL EXAMINATION: VITAL SIGNS: Temperature 97, pulse 101, and blood pressure 128/75. GENERAL APPEARANCE: Seems to be thin and cachectic. HEAD AND NECK: Has no teeth and no denture. tongue discoloration. HEART: Tachycardic. LUNGS: Clear with decreased sounds. ABDOMEN: Soft and nontender. EXTREMITIES: Has no edema. NEUROLOGIC: Awake, alert, and oriented x3. No focal signs. LABORATORY AND DIAGNOSTIC DATA: WBC 20.1, hemoglobin 10.3, hematocrit 30.7, and platelets 78,000. Sodium 138, potassium 4.7, chloride 95, carbon dioxide is 13, BUN 85, and creatinine 9.7. Blood culture is growing gram-negative rods. UA was negative. CT scan of the abdomen and pelvis showed emphysema, severe bilateral hydroureteronephrosis, cachexia, and anasarca. The patient had a pelvic ultrasound that showed suspected fibroma & ascites. IMPRESSION: Gram-negative sepsis. The patient has renal failure with bilateral hydronephrosis and hydroureter, abnormal vaginal bleeding, penicillin allergy, hyponatremia, anemia, thrombocytopenia, emphysema, and cachexia. RECOMMENDATIONS: Continue with Flagyl. We will change Cipro to aztreonam. Consider Urology evaluation. Case was discussed with the primary doctor. At the end of my exam, I thank Dr. Everardo Martin for involving me in the care of this patient. Gallito Martin M.D. DR: JOJO JOB#: [id number] CC: JANE
--- NOTE | 2019-10-03 12:32 | NUR ---
CASE MANAGEMENT: INITIAL REVIEW 63YR OLD FEMALE BIBA FROM HOME CC: NAUSEA . VOMITING . DIARRHEA SI:COLITIS . HYDRONEPHROSIS . BILATERAL HYDROURETERONEPHROSIS 98.7 90 13 175/82 99% ON RA WBC 20.1 H/H 10.3/30.7 NA+126 CL- 89 CO2 16 ANION GAP 21 BUN 91 CREAT 9.8 BG 116 CA+ 7.9 IS:IVF NS BOLUS X1 IV FLAGYL X1 IV CIPROFLOXACIN IV ZOFRAN X1 MYLANTA PO X1 BENTYL PO X1 LIDOCAINE PO X1 IV PEPCID X1 US PELVIS -Suspected fundal fibroid, Ascites US TRANSVAGINAL - Suspected fundal fibroid.Ascites CT ABD/PEL-Moderate to severe bilateral hydroureteronephrosis, obstruction \: 2E TELE UNIT CASE MANAGEMENT: REVIEW 10/03/19 SI:COLITIS 98.7 90 13 175/82 99% ON RA WBC 14.6 H/H 8.5/24.9 IS:IV AZTREONAM TID IVF NS @150ML/HR PO FLAGYL TID THORAZINE PO QHS \: 2E TELE UNIT PLAN: X-RAY ABD-trace ascites fluid US RENAL - Bilateral hydronephrosis; trace ascites fluid. EGD/COLONOSCOPY TODAY REPLACE NEPHROSTOMY TUBE TODAY
--- NOTE | 2019-10-03 13:47 | Infectious Diseases Prog Note ---
Assessment/Plan Assessment/Plan IMPRESSION: Gram-negative sepsis. Renal failure Bilateral hydronephrosis and hydroureter, Abnormal vaginal bleeding, Penicillin allergy, Hyponatremia, Anemia, Thrombocytopenia, Emphysema, Cachexia. RECOMMENDATIONS: Continue with Flagyl & aztreonam. Will have nephrostomy tube placement today Subjective ROS Limited/Unobtainable: No Constitutional: Reports: no symptoms, other - feels better Respiratory: Reports: productive cough Gastrointestinal/Abdominal: Denies: nausea, vomiting, diarrhea Genitourinary: Reports: other - decreased urine Musculoskeletal: Reports: pain, other - low back pain Allergies: Coded Allergies: PENICILLINS (Verified Allergy, Intermediate, rash, 07/28/12) BEET (Verified Allergy, Unknown, 10/01/19) PROPOFOL (Verified Allergy, Unknown, 10/01/19) Objective Vital Signs Last 24 Hour Vital Signs Date Time Temp Pulse Resp B/P (MAP) Pulse Ox O2 Delivery O2 Flow Rate FiO2 10/03/19 09:00 Room Air 10/03/19 08:15 97.7 106 20 156/79 (104) 94 10/03/19 07:56 106 10/03/19 04:00 98.6 82 18 137/80 (99) 97 10/03/19 04:00 111 10/03/19 00:00 110 10/03/19 00:00 96.9 89 18 136/77 (96) 96 10/02/19 21:00 Room Air 10/02/19 20:00 97 10/02/19 20:00 97.3 98 18 144/68 (93) 94 10/02/19 16:00 97.5 93 18 145/83 (103) 95 10/02/19 16:00 90 Height (Feet): 5 Height (Inches): 0.00 Weight (Pounds): 92 General Appearance: no acute distress, cachetic HEENT: mucous membranes moist Respiratory/Chest: lungs clear Cardiovascular: normal rate Abdomen: soft, non tender Extremities: no edema Neurologic/Psychiatric: alert, oriented x 3, responsive Microbiology Date/Time Source Procedure Growth Status 10/01/19 17:30 Blood Blood Culture - Preliminary Gram Negative Bacillus 1 Resulted 10/01/19 17:30 Blood Blood Culture - Preliminary NO GROWTH AFTER 24 HOURS Resulted Laboratory Tests Test 10/03/19 06:02 White Blood Count 14.6 K/UL (4.8-10.8) H Red Blood Count 3.19 M/UL (4.20-5.40) L Hemoglobin 8.5 G/DL (12.0-16.0) L Hematocrit 24.9 % (37.0-47.0) L Mean Corpuscular Volume 78 FL (80-99) L Mean Corpuscular Hemoglobin 26.7 PG (27.0-31.0) L Mean Corpuscular Hemoglobin Concent 34.2 G/DL (32.0-36.0) Red Cell Distribution Width 12.2 % (11.6-14.8) Platelet Count 274 K/UL (150-450) Mean Platelet Volume 6.6 FL (6.5-10.1) Neutrophils (%) (Auto) % (45.0-75.0) Lymphocytes (%) (Auto) % (20.0-45.0) Monocytes (%) (Auto) % (1.0-10.0) Eosinophils (%) (Auto) % (0.0-3.0) Basophils (%) (Auto) % (0.0-2.0) Differential Total Cells Counted 100 Neutrophils % (Manual) 86 % (45-75) H Lymphocytes % (Manual) 6 % (20-45) L Monocytes % (Manual) 7 % (1-10) Eosinophils % (Manual) 1 % (0-3) Basophils % (Manual) 0 % (0-2) Band Neutrophils 0 % (0-8) Platelet Estimate Adequate Platelet Morphology Normal Hypochromasia 1+ Sodium Level 131 MMOL/L (136-145) L Potassium Level 4.7 MMOL/L (3.5-5.1) Chloride Level 98 MMOL/L (98-107) Carbon Dioxide Level 11 MMOL/L (21-32) L Anion Gap 22 mmol/L (5-15) H Blood Urea Nitrogen 87 mg/dL (7-18) H Creatinine 10.0 MG/DL (0.55-1.30) H Estimat Glomerular Filtration Rate 3.9 mL/min (>60) Glucose Level 111 MG/DL (74-106) H Calcium Level 7.3 MG/DL (8.5-10.1) L Iron Level 34 ug/dL (50-175) L Total Iron Binding Capacity 219 ug/dL (250-450) L Percent Iron Saturation 16 % (15-50) Unsaturated Iron Binding 185 ug/dL (112-346) Total Bilirubin 0.3 MG/DL (0.2-1.0) Aspartate Amino Transf (AST/SGOT) 21 U/L (15-37) Alanine Aminotransferase (ALT/SGPT) 15 U/L (12-78) Alkaline Phosphatase 91 U/L (46-116) Total Protein 5.2 G/DL (6.4-8.2) L Albumin 2.2 G/DL (3.4-5.0) L Globulin 3.0 g/dL Albumin/Globulin Ratio 0.7 (1.0-2.7) L Vitamin D 25-Hydroxy Pending 25-Hydroxy Vitamin D2 Pending 25-Hydroxy Vitamin D3 Pending Current Medications Medications (Trade) Dose Ordered Sig/Michael Route PRN Reason Start Time Stop Time Status Last Admin Dose Admin Aztreonam 0.5 gm/ Dextrose 55 ml @ 110 mls/hr Q8H IVPB 10/02/19 15:00 10/09/19 14:59 10/03/19 06:19 Chlorpromazine (Thorazine) 50 mg QHS ORAL 10/01/19 21:15 10/31/19 21:14 10/02/19 21:12 Dextrose (Dextrose 50%) 25 ml Q30M PRN IV Hypoglycemia 10/01/19 20:30 10/31/19 20:29 Dextrose (Dextrose 50%) 50 ml Q30M PRN IV Hypoglycemia 10/01/19 20:30 10/31/19 20:29 Iopamidol (Isovue-300 100ml) 100 ml ONCE PRN INJ constrast 10/02/19 14:06 10/03/19 23:59 Lidocaine HCl (Xylocaine 1% 30ml) 30 ml ONCE PRN INJ procedure 10/02/19 14:06 10/03/19 23:59 Lorazepam (Ativan) 1 mg HSPRN PRN ORAL For Anxiety 10/01/19 20:30 10/08/19 20:29 10/02/19 21:12 Metronidazole (Flagyl) 500 mg Q8HR ORAL 10/01/19 23:00 10/08/19 22:59 10/03/19 06:18 Ondansetron HCl (Zofran) 4 mg Q6H PRN IVP Nausea & Vomiting 10/01/19 20:30 10/31/19 20:29 Sertraline HCl (Zoloft) 25 mg QHS ORAL 10/01/19 21:00 10/31/19 20:59 10/02/19 21:12 Sodium Chloride 1,000 ml @ 150 mls/hr Q6H40M IVLG 10/01/19 21:00 10/31/19 20:59 10/03/19 06:18 Temazepam (Restoril) 15 mg HSPRN PRN ORAL Insomnia 10/01/19 21:00 10/08/19 20:59 Gallito Martin MD Oct 03, 2019 13:47
--- NOTE | 2019-10-03 13:55 | General Progress Note ---
Assessment/Plan Problem List: (1) ARF (acute renal failure) ICD Codes: N17.9 - Acute kidney failure, unspecified SNOMED: 34603364 (2) Obstructive uropathy ICD Codes: N13.9 - Obstructive and reflux uropathy, unspecified SNOMED: 8895866 (3) Colitis ICD Codes: K52.9 - Noninfective gastroenteritis and colitis, unspecified SNOMED: 35680088, 11815848 (4) Vaginal bleeding ICD Codes: N93.9 - Abnormal uterine and vaginal bleeding, unspecified SNOMED: 654099668, 681762791 (5) Anemia ICD Codes: D64.9 - Anemia, unspecified SNOMED: 728419567 Status Narrative no improvement in renal function Assessment/Plan: await nephrostomies discussed with dr Elizalde Discussed with pt about ARF and possible malignancy follow labs Subjective Allergies: Coded Allergies: PENICILLINS (Verified Allergy, Intermediate, rash, 07/28/12) BEET (Verified Allergy, Unknown, 10/01/19) PROPOFOL (Verified Allergy, Unknown, 10/01/19) Subjective feels ok Objective Last 24 Hour Vital Signs Date Time Temp Pulse Resp B/P (MAP) Pulse Ox O2 Delivery O2 Flow Rate FiO2 10/03/19 09:00 Room Air 10/03/19 08:15 97.7 106 20 156/79 (104) 94 10/03/19 07:56 106 10/03/19 04:00 98.6 82 18 137/80 (99) 97 10/03/19 04:00 111 10/03/19 00:00 110 10/03/19 00:00 96.9 89 18 136/77 (96) 96 10/02/19 21:00 Room Air 10/02/19 20:00 97 10/02/19 20:00 97.3 98 18 144/68 (93) 94 10/02/19 16:00 97.5 93 18 145/83 (103) 95 10/02/19 16:00 90 Intake and Output 10/02/19 10/03/19 19:00 07:00 Intake Total 880 ml Balance 880 ml Intake Oral 880 ml # Voids 3 2 Laboratory Tests 10/03/19 06:02: White Blood Count 14.6H, Red Blood Count 3.19L, Hemoglobin 8.5L, Hematocrit 24.9L, Mean Corpuscular Volume 78L, Mean Corpuscular Hemoglobin 26.7L, Mean Corpuscular Hemoglobin Concent 34.2, Red Cell Distribution Width 12.2, Platelet Count 274, Mean Platelet Volume 6.6, Neutrophils (%) (Auto) , Lymphocytes (%) ( Auto) , Monocytes (%) (Auto) , Eosinophils (%) (Auto) , Basophils (%) (Auto) , Differential Total Cells Counted 100, Neutrophils % (Manual) 86H, Lymphocytes % (Manual) 6L, Monocytes % (Manual) 7, Eosinophils % (Manual) 1, Basophils % ( Manual) 0, Band Neutrophils 0, Platelet Estimate Adequate, Platelet Morphology Normal, Hypochromasia 1+, Sodium Level 131L, Potassium Level 4.7, Chloride Level 98, Carbon Dioxide Level 11L, Anion Gap 22H, Blood Urea Nitrogen 87H, Creatinine 10.0H, Estimat Glomerular Filtration Rate 3.9, Glucose Level 111H, Calcium Level 7.3L, Iron Level 34L, Total Iron Binding Capacity 219L, Percent Iron Saturation 16, Unsaturated Iron Binding 185, Total Bilirubin 0.3, Aspartate Amino Transf (AST/SGOT) 21, Alanine Aminotransferase (ALT/SGPT) 15, Alkaline Phosphatase 91, Total Protein 5.2L, Albumin 2.2L, Globulin 3.0, Albumin /Globulin Ratio 0.7L, Vitamin D 25-Hydroxy [Pending], 25-Hydroxy Vitamin D2 [ Pending], 25-Hydroxy Vitamin D3 [Pending] Height (Feet): 5 Height (Inches): 0.00 Weight (Pounds): 92 Cardiovascular: normal rate Respiratory/Chest: lungs clear Edema: no edema noted Generalized Everardo Martin MD Oct 03, 2019 13:55
--- NOTE | 2019-10-03 14:42 | Pre-Procedure Note/Attestation ---
Pre-Procedure Note/Attestation Complete Prior to Procedure Planned Procedure: bilateral Procedure Narrative: Nephrostomy Indications for Procedure Pre-Operative Diagnosis: renal failure Attestation I attest that I discussed the nature of the procedure; its benefits; risks and complications; and alternatives (and the risks and benefits of such alternatives ), prior to the procedure, with the patient (or the patient's legal development representative). I attest that, if there was a reasonable possibility of needing a blood transfusion, the patient (or the patient's legal development representative) was given the [facility] standardized written summary, pursuant to the Abdullahi [place] Blood Safety Act ([place] Health and Safety Code # 1645, as amended). I attest that I re-evaluated the patient just prior to the surgery and that there has been no change in the patient's H&P, except as documented below: Josh Delacruz MD Oct 03, 2019 14:42
[2019-10-03] MEDS ORDERED: cefTRIAXone 1 GM in D5W 55 ML IVPB ONE (14:45)
[2019-10-03] MEDS ORDERED: Omnipaque-300 100ml vial INJ SCH (14:45)
[2019-10-03] MEDS ORDERED: Lidocaine 1% Plain 30 ml INJ PRN (14:45)
[2019-10-03] MEDS ORDERED: Omnipaque-300 100ml vial INJ PRN (15:00)
--- NOTE | 2019-10-03 15:20 | Brief Operative Note ---
Immediate Post Operative Note Operative Note Pre-op Diagnosis: renal failure Procedure: bilat nephrostomies Post-op Diagnosis: same as pre-op Findings: consistent w/pre-op dx studies Surgeon: Tere Zamora Anesthesia: local Specimen: none Complications: none Condition: stable Fluids: none Implant(s) used?: No Josh Zamora MD Oct 03, 2019 15:20
--- NOTE | 2019-10-03 16:10 | NUR ---
NURSE NOTES: Azactam given late because pt getting a procedure done.
--- NOTE | 2019-10-03 17:45 | Diagnostic Imaging Report ---
Indication: Renal failure, evidence of bilateral obstructive uropathy on prior imaging studies Technique: Informed consent obtained prior to commencement of the procedure. Prior imaging studies reviewed. Procedural timeout performed. Patient was given antibiotics. Total sterile technique, including sterile gloves and hand hygiene, hat, mask, sterile gown, large sterile drape, and preparation with 2% chlorhexidine utilized. Attention initially turned to the right kidney. Local anesthesia with 1% lidocaine. Under real-time ultrasound guidance, puncture posterior interpolar region calyx using 21-gauge [place] needle. Contrast injected under fluoroscopic guidance, confirming satisfactory needle placement. 0.018 guidewire inserted, followed by insertion of 6 [place]i [place] assembly. Dilator and stiffener were removed, 0.035 guidewire inserted, introducer removed. An 8.5 [place] nephrostomy catheter was passed over the guidewire. The 0.018 guidewire was removed. The pigtail was formed. Contrast was injected, confirming satisfactory placement of the tube. The catheter was fixed to the skin and placed to gravity drainage. Attention then turned to the left kidney. Local anesthesia with 1% lidocaine. Under real-time ultrasound guidance, puncture posterior interpolar region calyx using 21-gauge [place] needle. Contrast injected under fluoroscopic guidance, confirming satisfactory needle placement. 0.018 guidewire inserted, followed by insertion of 6 [place] assembly. Dilator and stiffener were removed, 0.035 guidewire inserted, introducer removed. An 8.5 [place] Cook nephrostomy catheter was passed over the guidewire. The 0.018 guidewire was removed. The pigtail was formed. Contrast was injected, confirming satisfactory placement of the tube. The catheter was fixed to the skin and placed to gravity drainage The patient tolerated the procedure well, without immediate complication. Total fluoroscopy time 105 seconds. Total dose area product 0.04133 mGym2 Number of images: 8 Comparison: none Findings: Intraprocedural images demonstrate moderate to severe hydronephrosis bilaterally. There is bilateral hydroureter which extends most of the way into the pelvis Impression: Successful placement of bilateral nephrostomy tubes, as described
--- NOTE | 2019-10-03 17:45 | Diagnostic Imaging Report ---
Indication: Renal failure, evidence of bilateral obstructive uropathy on prior imaging studies Technique: Informed consent obtained prior to commencement of the procedure. Prior imaging studies reviewed. Procedural timeout performed. Patient was given antibiotics. Total sterile technique, including sterile gloves and hand hygiene, hat, mask, sterile gown, large sterile drape, and preparation with 2% chlorhexidine utilized. Attention initially turned to the right kidney. Local anesthesia with 1% lidocaine. Under real-time ultrasound guidance, puncture posterior interpolar region calyx using 21-gauge [place] needle. Contrast injected under fluoroscopic guidance, confirming satisfactory needle placement. 0.018 guidewire inserted, followed by insertion of 6 [place] assembly. Dilator and stiffener were removed, 0.035 guidewire inserted, introducer removed. An 8.5 [place] Cook nephrostomy catheter was passed over the guidewire. The 0.018 guidewire was removed. The pigtail was formed. Contrast was injected, confirming satisfactory placement of the tube. The catheter was fixed to the skin and placed to gravity drainage. Attention then turned to the left kidney. Local anesthesia with 1% lidocaine. Under real-time ultrasound guidance, puncture posterior interpolar region calyx using 21-gauge [place] needle. Contrast injected under fluoroscopic guidance, confirming satisfactory needle placement. 0.018 guidewire inserted, followed by insertion of 6 [place] assembly. Dilator and stiffener were removed, 0.035 guidewire inserted, introducer removed. An 8.5 [place] Cook nephrostomy catheter was passed over the guidewire. The 0.018 guidewire was removed. The pigtail was formed. Contrast was injected, confirming satisfactory placement of the tube. The catheter was fixed to the skin and placed to gravity drainage The patient tolerated the procedure well, without immediate complication. Total fluoroscopy time 105 seconds. Total dose area product 0.08700 mGym2 Number of images: 8 Comparison: none Findings: Intraprocedural images demonstrate moderate to severe hydronephrosis bilaterally. There is bilateral hydroureter which extends most of the way into the pelvis Impression: Successful placement of bilateral nephrostomy tubes, as described
--- NOTE | 2019-10-03 17:53 | General Progress Note ---
Assessment/Plan Assessment/Plan: Assessment - Microcytic anemia - N/V, D, Abd pain - improved - abdominal distention on exam - GNR bacteremia - Renal failure / bilat hydro / nephrostomy - hyponatremia - psych d/o Recommendations - IVF - Renal f/u - check Fe - check OB - abx - stool cultures - EGD/Colon once better Subjective Allergies: Coded Allergies: PENICILLINS (Verified Allergy, Intermediate, rash, 07/28/12) BEET (Verified Allergy, Unknown, 10/01/19) PROPOFOL (Verified Allergy, Unknown, 10/01/19) Subjective above noted seen this am now s/p nephrostomies Objective Last 24 Hour Vital Signs Date Time Temp Pulse Resp B/P (MAP) Pulse Ox O2 Delivery O2 Flow Rate FiO2 10/03/19 15:34 105 18 2.0 10/03/19 09:00 Room Air 10/03/19 08:15 97.7 106 20 156/79 (104) 94 10/03/19 07:56 106 10/03/19 04:00 98.6 82 18 137/80 (99) 97 10/03/19 04:00 111 10/03/19 00:00 110 10/03/19 00:00 96.9 89 18 136/77 (96) 96 10/02/19 21:00 Room Air 10/02/19 20:00 97 10/02/19 20:00 97.3 98 18 144/68 (93) 94 Intake and Output 10/02/19 10/03/19 19:00 07:00 Intake Total 880 ml Balance 880 ml Intake Oral 880 ml # Voids 3 2 Laboratory Tests 10/03/19 06:02: White Blood Count 14.6H, Red Blood Count 3.19L, Hemoglobin 8.5L, Hematocrit 24.9L, Mean Corpuscular Volume 78L, Mean Corpuscular Hemoglobin 26.7L, Mean Corpuscular Hemoglobin Concent 34.2, Red Cell Distribution Width 12.2, Platelet Count 274, Mean Platelet Volume 6.6, Neutrophils (%) (Auto) , Lymphocytes (%) ( Auto) , Monocytes (%) (Auto) , Eosinophils (%) (Auto) , Basophils (%) (Auto) , Differential Total Cells Counted 100, Neutrophils % (Manual) 86H, Lymphocytes % (Manual) 6L, Monocytes % (Manual) 7, Eosinophils % (Manual) 1, Basophils % ( Manual) 0, Band Neutrophils 0, Platelet Estimate Adequate, Platelet Morphology Normal, Hypochromasia 1+, Sodium Level 131L, Potassium Level 4.7, Chloride Level 98, Carbon Dioxide Level 11L, Anion Gap 22H, Blood Urea Nitrogen 87H, Creatinine 10.0H, Estimat Glomerular Filtration Rate 3.9, Glucose Level 111H, Calcium Level 7.3L, Iron Level 34L, Total Iron Binding Capacity 219L, Percent Iron Saturation 16, Unsaturated Iron Binding 185, Total Bilirubin 0.3, Aspartate Amino Transf (AST/SGOT) 21, Alanine Aminotransferase (ALT/SGPT) 15, Alkaline Phosphatase 91, Total Protein 5.2L, Albumin 2.2L, Globulin 3.0, Albumin /Globulin Ratio 0.7L, Vitamin D 25-Hydroxy [Pending], 25-Hydroxy Vitamin D2 [ Pending], 25-Hydroxy Vitamin D3 [Pending] Height (Feet): 5 Height (Inches): 0.00 Weight (Pounds): 92 Objective WDWN NCAT supple CTA RRR Abd soft NT ND no edema Corazon Silva MD Oct 03, 2019 17:53
--- NOTE | 2019-10-03 20:53 | NUR ---
HAND-OFF: Report given to Margo/DAXA, pt in stable condition.
[2019-10-03] MEDS: chlorproMAZINE 10mg tab ORAL SCH (20:57)
[2019-10-03] MEDS: Sertraline 50mg tab ORAL SCH (20:57)
[2019-10-03] MEDS: Hydromorphone 0.5mg/0.5ml inj IVP PRN (22:16)
[2019-10-04] VITALS: BP 108/54
[2019-10-04 04:00] VITALS: BP 130/65
[2019-10-04] MEDS: metroNIDAZOLE 500mg tab ORAL SCH ×3 (06:00→21:41)
--- NOTE | 2019-10-04 07:55 | NUR ---
NURSE NOTES: Received report from Brie Priest RN. Pt in stable condition Addendum: 10/04/19 at 0805 by Margo Crook RN CORRECTION: Received report 10/03/19 @ 2003
[2019-10-04 07:56] LABS: HEMOGLOBIN 9.3 G/DL (12.0-16.0); MEAN CORPUSCULAR VOLUME 77 FL (80-99); PLATELET COUNT 337 K/UL (150-450); RED CELL DISTRIBUTION WIDTH 12.1 % (11.6-14.8); WHITE BLOOD COUNT 15.4 K/UL (4.8-10.8)
[2019-10-04 08:00] VITALS: BP 160/103
--- NOTE | 2019-10-04 08:04 | NUR ---
HAND-OFF: Report given to Zach Hunter RN. Pt in stable condition.
[2019-10-04] MEDS: Aztreonam Inj 0.5 GM in D5W 55 ML IVPB SCH (08:35)
[2019-10-04 08:41] LABS: ANION GAP 22 mmol/L (5-15); BLOOD UREA NITROGEN 53 mg/dL (7-18); CALCIUM 8.9 MG/DL (8.5-10.1); CARBON DIOXIDE 13 MMOL/L (21-32); CHLORIDE 109 MMOL/L (98-107); CREATININE 5.3 MG/DL (0.55-1.30); POTASSIUM 3.3 MMOL/L (3.5-5.1); SODIUM 144 MMOL/L (136-145)
--- NOTE | 2019-10-04 11:33 | Infectious Diseases Prog Note ---
Assessment/Plan Assessment/Plan IMPRESSION: Pasteurella sepsis. Renal failure Bilateral hydronephrosis and hydroureter, Obstructive uropathy Abnormal vaginal bleeding, Penicillin allergy, Hyponatremia, Anemia, Thrombocytopenia, Emphysema, Cachexia. RECOMMENDATIONS: Continue with Flagyl Change aztreonam to Cefazolin Case was D/W pharmacy Subjective ROS Limited/Unobtainable: No Constitutional: Reports: no symptoms Respiratory: Reports: productive cough Gastrointestinal/Abdominal: Reports: no symptoms Genitourinary: Reports: other - has bilateral nephrostomy tube placement Musculoskeletal: Reports: pain, other - at site of nephrostomies Allergies: Coded Allergies: PENICILLINS (Verified Allergy, Intermediate, rash, 07/28/12) BEET (Verified Allergy, Unknown, 10/01/19) PROPOFOL (Verified Allergy, Unknown, 10/01/19) Objective Vital Signs Last 24 Hour Vital Signs Date Time Temp Pulse Resp B/P (MAP) Pulse Ox O2 Delivery O2 Flow Rate FiO2 10/04/19 09:00 Room Air 10/04/19 08:00 123 10/04/19 08:00 97.9 118 20 160/103 (122) 95 10/04/19 04:00 97.0 120 20 130/65 (86) 99 10/04/19 04:00 126 10/04/19 00:00 98.5 82 20 108/54 (72) 99 10/04/19 00:00 117 10/03/19 21:00 Room Air 10/03/19 20:00 109 10/03/19 20:00 98.1 81 20 133/78 (96) 99 10/03/19 16:00 106 10/03/19 16:00 97.9 107 20 158/85 (109) 96 10/03/19 15:34 105 18 2.0 10/03/19 12:00 108 10/03/19 12:00 97.7 111 20 158/85 (109) 100 Height (Feet): 5 Height (Inches): 0.00 Weight (Pounds): 92 General Appearance: no acute distress, cachetic HEENT: mucous membranes moist Respiratory/Chest: lungs clear Cardiovascular: tachycardia Abdomen: soft, non tender Genitourinary: other - bilateral nephrostomies, hematuria Extremities: no edema Neurologic/Psychiatric: alert, oriented x 3, responsive Microbiology Date/Time Source Procedure Growth Status 10/01/19 17:30 Blood Blood Culture - Final Pasteurella Multocida Complete 10/01/19 17:30 Blood Blood Culture - Preliminary NO GROWTH AFTER 48 HOURS Resulted Laboratory Tests Test 10/04/19 06:15 White Blood Count 15.4 K/UL (4.8-10.8) H Red Blood Count 3.50 M/UL (4.20-5.40) L Hemoglobin 9.3 G/DL (12.0-16.0) L Hematocrit 27.0 % (37.0-47.0) L Mean Corpuscular Volume 77 FL (80-99) L Mean Corpuscular Hemoglobin 26.5 PG (27.0-31.0) L Mean Corpuscular Hemoglobin Concent 34.4 G/DL (32.0-36.0) Red Cell Distribution Width 12.1 % (11.6-14.8) Platelet Count 337 K/UL (150-450) Mean Platelet Volume 5.9 FL (6.5-10.1) L Neutrophils (%) (Auto) % (45.0-75.0) Lymphocytes (%) (Auto) % (20.0-45.0) Monocytes (%) (Auto) % (1.0-10.0) Eosinophils (%) (Auto) % (0.0-3.0) Basophils (%) (Auto) % (0.0-2.0) Differential Total Cells Counted 100 Neutrophils % (Manual) 94 % (45-75) H Lymphocytes % (Manual) 3 % (20-45) L Monocytes % (Manual) 3 % (1-10) Eosinophils % (Manual) 0 % (0-3) Basophils % (Manual) 0 % (0-2) Band Neutrophils 0 % (0-8) Platelet Estimate Adequate Platelet Morphology Normal Hypochromasia 2+ Anisocytosis 1+ Microcytosis 1+ Spherocytes 1+ Sodium Level 144 MMOL/L (136-145) Potassium Level 3.3 MMOL/L (3.5-5.1) L Chloride Level 109 MMOL/L (98-107) H Carbon Dioxide Level 13 MMOL/L (21-32) L Anion Gap 22 mmol/L (5-15) H Blood Urea Nitrogen 53 mg/dL (7-18) H Creatinine 5.3 MG/DL (0.55-1.30) H Estimat Glomerular Filtration Rate 8.2 mL/min (>60) Glucose Level 151 MG/DL (74-106) H Calcium Level 8.9 MG/DL (8.5-10.1) # Current Medications Medications (Trade) Dose Ordered Sig/Michael Route PRN Reason Start Time Stop Time Status Last Admin Dose Admin Aztreonam 0.5 gm/ Dextrose 55 ml @ 110 mls/hr Q8H IVPB 10/02/19 15:00 10/09/19 14:59 10/04/19 08:35 Chlorpromazine (Thorazine) 50 mg QHS ORAL 10/01/19 21:15 10/31/19 21:14 10/03/19 20:57 Dextrose (Dextrose 50%) 25 ml Q30M PRN IV Hypoglycemia 10/01/19 20:30 10/31/19 20:29 Dextrose (Dextrose 50%) 50 ml Q30M PRN IV Hypoglycemia 10/01/19 20:30 10/31/19 20:29 Hydromorphone HCl (Dilaudid) 0.5 mg Q3H PRN IVP For Moderate Pain 10/03/19 22:00 10/10/19 21:59 10/03/19 22:16 Hydromorphone HCl (Dilaudid) 1 mg Q3H PRN IVP For Severe Pain 10/03/19 22:00 10/10/19 21:59 Lorazepam (Ativan) 1 mg HSPRN PRN ORAL For Anxiety 10/01/19 20:30 10/08/19 20:29 10/02/19 21:12 Metronidazole (Flagyl) 500 mg Q8HR ORAL 10/01/19 23:00 10/08/19 22:59 10/04/19 06:00 Ondansetron HCl (Zofran) 4 mg Q6H PRN IVP Nausea & Vomiting 10/01/19 20:30 10/31/19 20:29 Sertraline HCl (Zoloft) 25 mg QHS ORAL 10/01/19 21:00 10/31/19 20:59 10/03/19 20:57 Sodium Chloride 1,000 ml @ 150 mls/hr Q6H40M IVLG 10/01/19 21:00 10/31/19 20:59 10/04/19 08:35 Temazepam (Restoril) 15 mg HSPRN PRN ORAL Insomnia 10/01/19 21:00 10/08/19 20:59 10/03/19 22:14 Gallito Martin MD Oct 04, 2019 11:33
[2019-10-04] MEDS: Hydromorphone 0.5mg/0.5ml inj IVP PRN (11:34)
[2019-10-04 12:00] VITALS: BP 159/97
[2019-10-04] MEDS ORDERED: ceFAZolin 1gm in D5W 55ml IVP ONE (13:00)
--- NOTE | 2019-10-04 14:01 | NUR ---
NURSE NOTES: Dr. Martin made aware of elevated Blood pressure 160s/90s, K level 3.3 today. Per MD, no new order at this time. Will continue to monitor.
--- NOTE | 2019-10-04 14:20 | General Progress Note ---
Assessment/Plan Assessment/Plan: Assessment - Microcytic anemia - N/V, D, Abd pain - improved - abdominal distention on exam - GNR bacteremia - Renal failure / bilat hydro / nephrostomy - hyponatremia - psych d/o Recommendations - IVF - Renal f/u - check Fe - check OB - abx - stool cultures - EGD/Colon once better Subjective Allergies: Coded Allergies: PENICILLINS (Verified Allergy, Intermediate, rash, 07/28/12) BEET (Verified Allergy, Unknown, 10/01/19) PROPOFOL (Verified Allergy, Unknown, 10/01/19) Subjective above noted seen this am s/p nephrostomies Objective Last 24 Hour Vital Signs Date Time Temp Pulse Resp B/P (MAP) Pulse Ox O2 Delivery O2 Flow Rate FiO2 10/04/19 12:00 98.4 115 20 159/97 (117) 94 10/04/19 12:00 113 10/04/19 09:00 Room Air 10/04/19 08:00 123 10/04/19 08:00 97.9 118 20 160/103 (122) 95 10/04/19 04:00 97.0 120 20 130/65 (86) 99 10/04/19 04:00 126 10/04/19 00:00 98.5 82 20 108/54 (72) 99 10/04/19 00:00 117 10/03/19 21:00 Room Air 10/03/19 20:00 109 10/03/19 20:00 98.1 81 20 133/78 (96) 99 10/03/19 16:00 106 10/03/19 16:00 97.9 107 20 158/85 (109) 96 10/03/19 15:34 105 18 2.0 Intake and Output 10/03/19 10/04/19 19:00 07:00 Output Total 5 ml Balance -5 ml Output Urine Total 5 ml Stool Total 0 ml # Voids 2 # Bowel Movements 1 Laboratory Tests 10/04/19 06:15: White Blood Count 15.4H, Red Blood Count 3.50L, Hemoglobin 9.3L, Hematocrit 27.0L, Mean Corpuscular Volume 77L, Mean Corpuscular Hemoglobin 26.5L, Mean Corpuscular Hemoglobin Concent 34.4, Red Cell Distribution Width 12.1, Platelet Count 337, Mean Platelet Volume 5.9L, Neutrophils (%) (Auto) , Lymphocytes (%) ( Auto) , Monocytes (%) (Auto) , Eosinophils (%) (Auto) , Basophils (%) (Auto) , Differential Total Cells Counted 100, Neutrophils % (Manual) 94H, Lymphocytes % (Manual) 3L, Monocytes % (Manual) 3, Eosinophils % (Manual) 0, Basophils % ( Manual) 0, Band Neutrophils 0, Platelet Estimate Adequate, Platelet Morphology Normal, Hypochromasia 2+, Anisocytosis 1+, Microcytosis 1+, Spherocytes 1+, Sodium Level 144, Potassium Level 3.3L, Chloride Level 109H, Carbon Dioxide Level 13L, Anion Gap 22H, Blood Urea Nitrogen 53H, Creatinine 5.3H, Estimat Glomerular Filtration Rate 8.2, Glucose Level 151H, Calcium Level 8.9# Height (Feet): 5 Height (Inches): 0.00 Weight (Pounds): 92 Objective WDWN NCAT supple CTA RRR Abd soft NT ND, b/l nephrostomies no edema Corazon Silva MD Oct 04, 2019 14:20
[2019-10-04] MEDS: HYDROmorphone 1mg/ml Carpuject IVP PRN ×2 (15:18→20:27)
[2019-10-04 16:00] VITALS: BP 161/102
--- NOTE | 2019-10-04 17:38 | General Progress Note ---
Assessment/Plan Problem List: (1) ARF (acute renal failure) Assessment & Plan: better ICD Codes: N17.9 - Acute kidney failure, unspecified SNOMED: 80981158 (2) Obstructive uropathy ICD Codes: N13.9 - Obstructive and reflux uropathy, unspecified SNOMED: 3110679 (3) Colitis ICD Codes: K52.9 - Noninfective gastroenteritis and colitis, unspecified SNOMED: 08645960, 65561801 (4) Vaginal bleeding ICD Codes: N93.9 - Abnormal uterine and vaginal bleeding, unspecified SNOMED: 166708466, 778637019 (5) Anemia ICD Codes: D64.9 - Anemia, unspecified SNOMED: 211342234 Status Narrative S?P nephrostomies Assessment/Plan: Abxs Discussed with PCP follow labs time spent 32 min Subjective Allergies: Coded Allergies: PENICILLINS (Verified Allergy, Intermediate, rash, 07/28/12) BEET (Verified Allergy, Unknown, 10/01/19) PROPOFOL (Verified Allergy, Unknown, 10/01/19) Subjective feels ok Objective Last 24 Hour Vital Signs Date Time Temp Pulse Resp B/P (MAP) Pulse Ox O2 Delivery O2 Flow Rate FiO2 10/04/19 16:00 98.2 110 20 161/102 (121) 96 10/04/19 12:00 98.4 115 20 159/97 (117) 94 10/04/19 12:00 113 10/04/19 09:00 Room Air 10/04/19 08:00 123 10/04/19 08:00 97.9 118 20 160/103 (122) 95 10/04/19 04:00 97.0 120 20 130/65 (86) 99 10/04/19 04:00 126 10/04/19 00:00 98.5 82 20 108/54 (72) 99 10/04/19 00:00 117 10/03/19 21:00 Room Air 10/03/19 20:00 109 10/03/19 20:00 98.1 81 20 133/78 (96) 99 Intake and Output 10/03/19 10/04/19 19:00 07:00 Output Total 5 ml Balance -5 ml Output Urine Total 5 ml Stool Total 0 ml # Voids 2 # Bowel Movements 1 Laboratory Tests 10/04/19 06:15: White Blood Count 15.4H, Red Blood Count 3.50L, Hemoglobin 9.3L, Hematocrit 27.0L, Mean Corpuscular Volume 77L, Mean Corpuscular Hemoglobin 26.5L, Mean Corpuscular Hemoglobin Concent 34.4, Red Cell Distribution Width 12.1, Platelet Count 337, Mean Platelet Volume 5.9L, Neutrophils (%) (Auto) , Lymphocytes (%) ( Auto) , Monocytes (%) (Auto) , Eosinophils (%) (Auto) , Basophils (%) (Auto) , Differential Total Cells Counted 100, Neutrophils % (Manual) 94H, Lymphocytes % (Manual) 3L, Monocytes % (Manual) 3, Eosinophils % (Manual) 0, Basophils % ( Manual) 0, Band Neutrophils 0, Platelet Estimate Adequate, Platelet Morphology Normal, Hypochromasia 2+, Anisocytosis 1+, Microcytosis 1+, Spherocytes 1+, Sodium Level 144, Potassium Level 3.3L, Chloride Level 109H, Carbon Dioxide Level 13L, Anion Gap 22H, Blood Urea Nitrogen 53H, Creatinine 5.3H, Estimat Glomerular Filtration Rate 8.2, Glucose Level 151H, Calcium Level 8.9# Height (Feet): 5 Height (Inches): 0.00 Weight (Pounds): 92 Cardiovascular: normal rate Respiratory/Chest: lungs clear Edema: no edema noted Everardo Rowe MD Oct 04, 2019 17:38
--- NOTE | 2019-10-04 19:30 | NUR ---
HAND-OFF: Report given to DAXA Mackay.
--- NOTE | 2019-10-04 19:34 | NUR ---
NURSE NOTES: Pt is alert and oriented X4. No complains of pain at this time. no signs of cardiac or respiratory distress at this time, running sinus tachycardia, Bed in lowest position locked, rails up x2, bed alarm on for safety. Call light within reach. Will continue to monitor pt and follow plans of care- emptying nephrostomy tubes frequently as they are draining large amounts.
[2019-10-04 20:00] VITALS: BP 164/93
[2019-10-04] MEDS: chlorproMAZINE 10mg tab ORAL SCH (20:28)
[2019-10-04] MEDS: Sertraline 50mg tab ORAL SCH (20:28)
[2019-10-04] MEDS: LORazepam 1mg tab ORAL PRN (21:41)
[2019-10-05 04:00] VITALS: BP 160/100
[2019-10-05] MEDS: HYDROmorphone 1mg/ml Carpuject IVP PRN ×3 (04:56→13:16)
[2019-10-05] MEDS: metroNIDAZOLE 500mg tab ORAL SCH ×3 (04:57→20:14)
--- NOTE | 2019-10-05 07:09 | General Progress Note ---
Assessment/Plan Assessment/Plan: Assessment - Microcytic anemia - N/V, D, Abd pain - improved - abdominal distention on exam - GNR bacteremia - Renal failure / bilat hydro / nephrostomy - hyponatremia - psych d/o Recommendations - IVF - Renal f/u - check Fe - check OB - abx - stool cultures - EGD/Colon once better Subjective Allergies: Coded Allergies: PENICILLINS (Verified Allergy, Intermediate, rash, 07/28/12) BEET (Verified Allergy, Unknown, 10/01/19) PROPOFOL (Verified Allergy, Unknown, 10/01/19) Subjective above noted seen this am some nausea yesterday no vomiting or diarrhea today's labs pending Objective Last 24 Hour Vital Signs Date Time Temp Pulse Resp B/P (MAP) Pulse Ox O2 Delivery O2 Flow Rate FiO2 10/05/19 04:00 109 10/05/19 04:00 98.2 118 20 160/100 (120) 96 10/05/19 00:00 109 10/04/19 21:06 98 10/04/19 21:00 Room Air 10/04/19 20:00 114 10/04/19 20:00 97.5 115 21 164/93 (116) 96 10/04/19 16:00 114 10/04/19 16:00 98.2 110 20 161/102 (121) 96 10/04/19 12:00 98.4 115 20 159/97 (117) 94 10/04/19 12:00 113 10/04/19 09:00 Room Air 10/04/19 08:00 123 10/04/19 08:00 97.9 118 20 160/103 (122) 95 Intake and Output 10/04/19 10/05/19 19:00 07:00 Intake Total 1300 ml 900 ml Output Total 9600 ml 3950 ml Balance -8300 ml -3050 ml Intake Oral 1300 ml IV Total 900 ml Output Urine Total 3900 ml Drainage Total 5700 ml Other 3950 ml # Voids 4 # Bowel Movements 5 Laboratory Tests 10/05/19 06:20: Sodium Level [Pending], Potassium Level [Pending], Chloride Level [Pending], Carbon Dioxide Level [Pending], Blood Urea Nitrogen [Pending], Creatinine [ Pending], Estimat Glomerular Filtration Rate [Pending], Glucose Level [Pending] , Calcium Level [Pending] Height (Feet): 5 Height (Inches): 0.00 Weight (Pounds): 92 Objective WDWN NCAT supple CTA RRR Abd soft NT ND, b/l nephrostomies no edema Corazon Silva MD Oct 05, 2019 07:09
[2019-10-05 07:17] LABS: ANION GAP 10 mmol/L (5-15); BLOOD UREA NITROGEN 20 mg/dL (7-18); CALCIUM 8.8 MG/DL (8.5-10.1); CARBON DIOXIDE 26 MMOL/L (21-32); CHLORIDE 107 MMOL/L (98-107); CREATININE 1.5 MG/DL (0.55-1.30); SODIUM 144 MMOL/L (136-145)
[2019-10-05 07:29] LABS: POTASSIUM 2.3 MMOL/L (3.5-5.1)
--- NOTE | 2019-10-05 08:05 | NUR ---
HAND-OFF: Report given to DAXA Hernandez.
--- NOTE | 2019-10-05 08:27 | NUR ---
NURSE NOTES: Nurse asked for me to call Md regarding K 2.3 level and Md called back and stated to give the pt potassium 40 meq twice, first dose now and the second dose in 4 hours. He also changed the pt diet from renal to regular.
[2019-10-05 08:42] VITALS: BP 152/85
[2019-10-05 12:00] VITALS: BP 148/81
--- NOTE | 2019-10-05 12:32 | General Progress Note ---
Assessment/Plan Problem List: (1) ARF (acute renal failure) Assessment & Plan: better ICD Codes: N17.9 - Acute kidney failure, unspecified SNOMED: 20963151 (2) Obstructive uropathy ICD Codes: N13.9 - Obstructive and reflux uropathy, unspecified SNOMED: 6530077 (3) Colitis ICD Codes: K52.9 - Noninfective gastroenteritis and colitis, unspecified SNOMED: 25139550, 20281353 (4) Vaginal bleeding ICD Codes: N93.9 - Abnormal uterine and vaginal bleeding, unspecified SNOMED: 596402265, 635475102 (5) Anemia ICD Codes: D64.9 - Anemia, unspecified SNOMED: 238236714 Assessment/Plan: Abxs change IVF with K follow labs time spent 33 min Subjective Allergies: Coded Allergies: PENICILLINS (Verified Allergy, Intermediate, rash, 07/28/12) BEET (Verified Allergy, Unknown, 10/01/19) PROPOFOL (Verified Allergy, Unknown, 10/01/19) Subjective feels ok Objective Last 24 Hour Vital Signs Date Time Temp Pulse Resp B/P (MAP) Pulse Ox O2 Delivery O2 Flow Rate FiO2 10/05/19 09:00 Room Air 10/05/19 08:42 97.7 119 20 152/85 (107) 96 10/05/19 08:38 122 10/05/19 04:00 109 10/05/19 04:00 98.2 118 20 160/100 (120) 96 10/05/19 00:00 109 10/04/19 21:06 98 10/04/19 21:00 Room Air 10/04/19 20:00 114 10/04/19 20:00 97.5 115 21 164/93 (116) 96 10/04/19 16:00 114 10/04/19 16:00 98.2 110 20 161/102 (121) 96 Intake and Output 10/04/19 10/05/19 19:00 07:00 Intake Total 1300 ml 1650 ml Output Total 9600 ml 3950 ml Balance -8300 ml -2300 ml Intake Oral 1300 ml IV Total 1650 ml Output Urine Total 3900 ml Drainage Total 5700 ml Other 3950 ml # Voids 4 # Bowel Movements 5 Laboratory Tests 10/05/19 06:20: Sodium Level 144, Potassium Level 2.3*L, Chloride Level 107, Carbon Dioxide Level 26, Anion Gap 10, Blood Urea Nitrogen 20H, Creatinine 1.5#H, Estimat Glomerular Filtration Rate 35.2, Glucose Level 156H, Calcium Level 8.8 Height (Feet): 5 Height (Inches): 0.00 Weight (Pounds): 92 Cardiovascular: normal rate Respiratory/Chest: lungs clear Edema: no edema noted Generalized Everardo Martin MD Oct 05, 2019 12:32
[2019-10-05] MEDS: 1/2NS w/KCl 20mEq 1000ml 1,000 ML IV SCH (12:35)
[2019-10-05] MEDS ORDERED: ceFAZolin sod 0.5 GM in D5W 55 ML IVPB SCH (13:00)
[2019-10-05] MEDS ORDERED: D5W IVPB SCH (13:00)
[2019-10-05] MEDS ORDERED: CEFAZOLIN SOD IVPB SCH (13:00)
[2019-10-05] MEDS: LORazepam 1mg tab ORAL PRN (13:37)
[2019-10-05 16:00] VITALS: BP 150/89
--- NOTE | 2019-10-05 19:00 | NUR ---
NURSE NOTES: Pt. calls to room at least Q2hrs. Ativan given for anxiety x1. VSS. Pain medication given 2X through out shift. Nephrostomy tube emptied frequently. Had runny BM 4X during shift, on antibiotics.
--- NOTE | 2019-10-05 19:02 | NUR ---
HAND-OFF: Report given to DAXA Marin. Pt. in stable condition. Plan of care endorsed.
--- NOTE | 2019-10-05 19:03 | NUR ---
NURSE NOTES: Received report from Mary MITTAL, patient in stable condition, AOx4, complains of pain, IV site on left forearm asymptomatic, patent, bilateral nephrostomy tubes patent, draining to gravity, bed low&locked,side rails upx3, call light within reach, will continue to monitor and reassess
[2019-10-05 20:00] VITALS: BP 159/100
[2019-10-05] MEDS: Sertraline 50mg tab ORAL SCH (20:10)
[2019-10-05] MEDS: chlorproMAZINE 10mg tab ORAL SCH (20:10)
[2019-10-05] MEDS: Hydromorphone 0.5mg/0.5ml inj IVP PRN (20:17)
[2019-10-06] VITALS: BP 158/89
[2019-10-06] MEDS: 1/2NS w/KCl 20mEq 1000ml 1,000 ML IV SCH ×4 (00:22→15:10)
[2019-10-06] MEDS: Hydromorphone 0.5mg/0.5ml inj IVP PRN ×3 (03:28→18:30)
[2019-10-06 04:00] VITALS: BP 155/92
[2019-10-06] MEDS: metroNIDAZOLE 500mg tab ORAL SCH ×3 (05:59→22:52)
--- NOTE | 2019-10-06 07:10 | NUR ---
NURSE NOTES: Received report from Tania MITTAL. Pt is alert and oriented X4. No complains of pain at this time. No signs of cardiac or respiratory distress at this time, Noted sinus tachycardia and per Esther Wang no intervention needed for ST. Bed in lowest position locked, rails up x2, bed alarm on for safety. Call light within reach. Will continue to plans of care Bilateral nephrostomy tubes intact and patent.
--- NOTE | 2019-10-06 07:46 | NUR ---
HAND-OFF: Report given to Trae RN, patient in stable condition, plan of care endorsed.
[2019-10-06 07:51] LABS: HEMATOCRIT 25.8 % (37.0-47.0); HEMOGLOBIN 9.2 G/DL (12.0-16.0); MEAN CORPUSCULAR VOLUME 76 FL (80-99); PLATELET COUNT 309 K/UL (150-450); RED CELL DISTRIBUTION WIDTH 12.2 % (11.6-14.8); WHITE BLOOD COUNT 20.8 K/UL (4.8-10.8)
[2019-10-06 08:00] VITALS: BP 154/86
[2019-10-06 08:03] LABS: ANION GAP 10 mmol/L (5-15); BLOOD UREA NITROGEN 13 mg/dL (7-18); CALCIUM 8.8 MG/DL (8.5-10.1); CARBON DIOXIDE 30 MMOL/L (21-32); CHLORIDE 99 MMOL/L (98-107); CREATININE 0.9 MG/DL (0.55-1.30); POTASSIUM 2.8 MMOL/L (3.5-5.1); SODIUM 139 MMOL/L (136-145)
--- NOTE | 2019-10-06 09:03 | NUR ---
NURSE NOTES: Informed Mario Gale regarding K: 2.8 and Sinus tachycardia with 120-130/min. IV KCL 50mEq and K-Dur 40mEq po x1 ordered and No rate control needed per Dr. Martin
--- NOTE | 2019-10-06 11:24 | Infectious Diseases Prog Note ---
Assessment/Plan Assessment/Plan IMPRESSION: Pasteurella sepsis. Renal failure Bilateral hydronephrosis and hydroureter, Obstructive uropathy Abnormal vaginal bleeding, Penicillin allergy, Hypokalemia Hypomagnesemia Anemia, Thrombocytopenia, Emphysema, Cachexia. RECOMMENDATIONS: Continue with Flagyl Increase Cefazolin dose Subjective ROS Limited/Unobtainable: Yes Constitutional: Reports: no symptoms Respiratory: Reports: no symptoms Gastrointestinal/Abdominal: Reports: no symptoms Allergies: Coded Allergies: PENICILLINS (Verified Allergy, Intermediate, rash, 07/28/12) BEET (Verified Allergy, Unknown, 10/01/19) PROPOFOL (Verified Allergy, Unknown, 10/01/19) Objective Vital Signs Last 24 Hour Vital Signs Date Time Temp Pulse Resp B/P (MAP) Pulse Ox O2 Delivery O2 Flow Rate FiO2 10/06/19 08:00 98.1 117 20 154/86 (108) 95 10/06/19 08:00 118 10/06/19 04:00 124 10/06/19 04:00 99.2 124 20 155/92 (113) 95 10/06/19 00:00 132 10/06/19 00:00 99.0 128 20 158/89 (112) 95 10/05/19 21:00 Room Air 10/05/19 20:00 123 10/05/19 20:00 99.0 119 19 159/100 (119) 95 10/05/19 16:00 97.6 119 19 150/89 (109) 95 10/05/19 16:00 124 10/05/19 12:00 97.5 123 20 148/81 (103) 95 10/05/19 12:00 123 Height (Feet): 5 Height (Inches): 0.00 Weight (Pounds): 92 General Appearance: cachetic HEENT: mucous membranes moist Respiratory/Chest: lungs clear Cardiovascular: normal rate Abdomen: soft, non tender Genitourinary: other - bilateral nephrostomies Extremities: no edema Neurologic/Psychiatric: alert Musculoskeletal: atrophy Microbiology Date/Time Source Procedure Growth Status 10/03/19 19:30 Stool Stool Culture - Final NO SALMONELLA,SHIGELLA,CAMPYLOBACTER,... Complete Laboratory Tests Test 10/06/19 07:06 10/06/19 07:15 White Blood Count 20.8 K/UL (4.8-10.8) H Red Blood Count 3.40 M/UL (4.20-5.40) L Hemoglobin 9.2 G/DL (12.0-16.0) L Hematocrit 25.8 % (37.0-47.0) L Mean Corpuscular Volume 76 FL (80-99) L Mean Corpuscular Hemoglobin 27.2 PG (27.0-31.0) Mean Corpuscular Hemoglobin Concent 35.8 G/DL (32.0-36.0) Red Cell Distribution Width 12.2 % (11.6-14.8) Platelet Count 309 K/UL (150-450) Mean Platelet Volume 6.2 FL (6.5-10.1) L Neutrophils (%) (Auto) % (45.0-75.0) Lymphocytes (%) (Auto) % (20.0-45.0) Monocytes (%) (Auto) % (1.0-10.0) Eosinophils (%) (Auto) % (0.0-3.0) Basophils (%) (Auto) % (0.0-2.0) Differential Total Cells Counted 100 Neutrophils % (Manual) 88 % (45-75) H Lymphocytes % (Manual) 4 % (20-45) L Monocytes % (Manual) 6 % (1-10) Eosinophils % (Manual) 1 % (0-3) Basophils % (Manual) 0 % (0-2) Band Neutrophils 1 % (0-8) Platelet Estimate Adequate Platelet Morphology Normal Hypochromasia 2+ Anisocytosis 1+ Microcytosis 1+ Spherocytes Rare Sodium Level 139 MMOL/L (136-145) Potassium Level 2.8 MMOL/L (3.5-5.1) L Chloride Level 99 MMOL/L (98-107) Carbon Dioxide Level 30 MMOL/L (21-32) Anion Gap 10 mmol/L (5-15) Blood Urea Nitrogen 13 mg/dL (7-18) Creatinine 0.9 MG/DL (0.55-1.30) Estimat Glomerular Filtration Rate > 60 mL/min (>60) Glucose Level 138 MG/DL (74-106) H Calcium Level 8.8 MG/DL (8.5-10.1) Magnesium Level 0.8 MG/DL (1.8-2.4) *L Current Medications Medications (Trade) Dose Ordered Sig/Michael Route PRN Reason Start Time Stop Time Status Last Admin Dose Admin Cefazolin Sodium 500 mg/Dextrose 55 ml @ 110 mls/hr Q24H IVPB 10/05/19 13:00 10/12/19 12:59 10/05/19 13:38 Chlorpromazine (Thorazine) 50 mg QHS ORAL 10/01/19 21:15 10/31/19 21:14 10/05/19 20:10 Dextrose (Dextrose 50%) 25 ml Q30M PRN IV Hypoglycemia 10/01/19 20:30 10/31/19 20:29 Dextrose (Dextrose 50%) 50 ml Q30M PRN IV Hypoglycemia 10/01/19 20:30 10/31/19 20:29 Hydromorphone HCl (Dilaudid) 0.5 mg Q3H PRN IVP For Moderate Pain 10/03/19 22:00 10/10/19 21:59 10/06/19 09:28 Hydromorphone HCl (Dilaudid) 1 mg Q3H PRN IVP For Severe Pain 10/03/19 22:00 10/10/19 21:59 10/05/19 13:16 Lorazepam (Ativan) 1 mg HSPRN PRN ORAL For Anxiety 10/01/19 20:30 10/08/19 20:29 10/05/19 13:37 Magnesium Sulfate 100 ml @ 100 mls/hr Q1H IVPB 10/06/19 10:30 10/06/19 15:29 10/06/19 10:28 Metronidazole (Flagyl) 500 mg Q8HR ORAL 10/01/19 23:00 10/08/19 22:59 10/06/19 05:59 Ondansetron HCl (Zofran) 4 mg Q6H PRN IVP Nausea & Vomiting 10/01/19 20:30 10/31/19 20:29 10/05/19 04:55 Potassium Chloride 100 ml @ 100 mls/hr Q1HR IVPB 10/06/19 09:00 10/06/19 13:59 10/06/19 10:29 Sertraline HCl (Zoloft) 25 mg QHS ORAL 10/01/19 21:00 10/31/19 20:59 10/05/19 20:10 Sodium 1,000 ml @ 150 mls/hr Q6H40M IV 10/05/19 12:30 11/04/19 12:29 10/06/19 09:20 Temazepam (Restoril) 15 mg HSPRN PRN ORAL Insomnia 10/01/19 21:00 10/08/19 20:59 10/05/19 20:14 Gallito Martin MD Oct 06, 2019 11:24
[2019-10-06 12:00] VITALS: BP 157/100
[2019-10-06] MEDS: ceFAZolin 1gm/50ml Premix 50 ML IV SCH ×2 (13:36→22:52)
--- NOTE | 2019-10-06 14:29 | NUR ---
RD ASSESSMENT & RECOMMENDATIONS SEE CARE ACTIVITY FOR COMPLETE ASSESSMENT DAILY ESTIMATED NEEDS: Needs based on underweight 42.1kg 30-35 kcals/kg 5601-7439 total kcals 1-1.5 g protein/kg 42-63 g total protein 25-30 mL/kg 3687-2907 total fluid mLs NUTRITION DIAGNOSIS: Altered nutrition related lab values r/t clinical status, renal failure as evidenced by low Na (128-> wnl), elev BUN (85-> wnl), elev Creat (9.7-> wnl). 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
--- NOTE | 2019-10-06 15:22 | General Progress Note ---
Assessment/Plan Problem List: (1) ARF (acute renal failure) Assessment & Plan: better ICD Codes: N17.9 - Acute kidney failure, unspecified SNOMED: 62121820 (2) Obstructive uropathy ICD Codes: N13.9 - Obstructive and reflux uropathy, unspecified SNOMED: 9408948 (3) Colitis ICD Codes: K52.9 - Noninfective gastroenteritis and colitis, unspecified SNOMED: 11938545, 73445314 (4) Vaginal bleeding ICD Codes: N93.9 - Abnormal uterine and vaginal bleeding, unspecified SNOMED: 642385162, 558858229 (5) Anemia ICD Codes: D64.9 - Anemia, unspecified SNOMED: 963006769 Assessment/Plan: Replete K Abxs change IVF with K follow labs Discussed wit pt and RN time spent 33 min Subjective Allergies: Coded Allergies: PENICILLINS (Verified Allergy, Intermediate, rash, 07/28/12) BEET (Verified Allergy, Unknown, 10/01/19) PROPOFOL (Verified Allergy, Unknown, 10/01/19) Subjective feels ok Objective Last 24 Hour Vital Signs Date Time Temp Pulse Resp B/P (MAP) Pulse Ox O2 Delivery O2 Flow Rate FiO2 10/06/19 12:00 97.8 112 20 157/100 (119) 96 10/06/19 12:00 112 10/06/19 09:00 Room Air 10/06/19 08:00 98.1 117 20 154/86 (108) 95 10/06/19 08:00 118 10/06/19 04:00 124 10/06/19 04:00 99.2 124 20 155/92 (113) 95 10/06/19 00:00 132 10/06/19 00:00 99.0 128 20 158/89 (112) 95 10/05/19 21:00 Room Air 10/05/19 20:00 123 10/05/19 20:00 99.0 119 19 159/100 (119) 95 10/05/19 16:00 97.6 119 19 150/89 (109) 95 10/05/19 16:00 124 Intake and Output 10/05/19 10/06/19 19:00 07:00 Intake Total 1400 ml Output Total 5100 ml 1850 ml Balance -3700 ml -1850 ml Intake Oral 1400 ml Drainage Total 5100 ml 1850 ml Laboratory Tests 10/06/19 07:06: White Blood Count 20.8H, Red Blood Count 3.40L, Hemoglobin 9.2L, Hematocrit 25.8L, Mean Corpuscular Volume 76L, Mean Corpuscular Hemoglobin 27.2, Mean Corpuscular Hemoglobin Concent 35.8, Red Cell Distribution Width 12.2, Platelet Count 309, Mean Platelet Volume 6.2L, Neutrophils (%) (Auto) , Lymphocytes (%) ( Auto) , Monocytes (%) (Auto) , Eosinophils (%) (Auto) , Basophils (%) (Auto) , Differential Total Cells Counted 100, Neutrophils % (Manual) 88H, Lymphocytes % (Manual) 4L, Monocytes % (Manual) 6, Eosinophils % (Manual) 1, Basophils % ( Manual) 0, Band Neutrophils 1, Platelet Estimate Adequate, Platelet Morphology Normal, Hypochromasia 2+, Anisocytosis 1+, Microcytosis 1+, Spherocytes Rare, Sodium Level 139, Potassium Level 2.8L, Chloride Level 99, Carbon Dioxide Level 30, Anion Gap 10, Blood Urea Nitrogen 13, Creatinine 0.9, Estimat Glomerular Filtration Rate > 60, Glucose Level 138H, Calcium Level 8.8 10/06/19 07:15: Magnesium Level 0.8*L Height (Feet): 5 Height (Inches): 0.00 Weight (Pounds): 92 Cardiovascular: normal rate, tachycardia Respiratory/Chest: lungs clear Edema: no edema noted Everardo Rowe MD Oct 06, 2019 15:22
--- NOTE | 2019-10-06 15:53 | NUR ---
CASE MANAGEMENT: REVIEW 10/06/19 SI:COLITIS . ACUTE RENAL FAILURE . OBSTRUCTED UROPATHY . ANEMIA 98.1 117 20 154/86 95% ON RA WBC 20.8 H/H 9.2/25.8 MG 0.8 K+ 2.8 IS:IV MG SULFATE X5BAGS IV KCL X5BAGS PO K-DUR X1 IV ANCEF TID IVF NS @150ML/HR PO FLAGYL TID THORAZINE PO QHS RESTORIL POQHS/PRN IV DILAUDID Q3HR/PRN \: 2E TELE UNIT PLAN: S/P REPLACE NEPHROSTOMY TUBE REPLACE MG AND K+
[2019-10-06 16:00] VITALS: BP 147/86
[2019-10-06] MEDS ORDERED: Vitamin D 50,000 units cap ORAL SCH (16:00)
--- NOTE | 2019-10-06 19:17 | NUR ---
HAND-OFF: Report given to Chris MITTAL. Pt remains stable. .
--- NOTE | 2019-10-06 19:18 | NUR ---
NURSE NOTES: Received this wonderful pt from DAXA Larkin. Pt is awake and resting in bed with HOB elevated. IV site intact. Nephrostomy tubes draining to gravity. Bed locked in lowest position, bed alarm, call light within reach, will continue with plan of care.
[2019-10-06 20:00] VITALS: BP 137/86
[2019-10-06] MEDS: Sertraline 50mg tab ORAL SCH (21:11)
[2019-10-06] MEDS: chlorproMAZINE 10mg tab ORAL SCH (21:11)
--- NOTE | 2019-10-06 21:39 | General Progress Note ---
Assessment/Plan Assessment/Plan: Assessment - Microcytic anemia - N/V, D, Abd pain - improved - abdominal distention on exam - GNR bacteremia - Renal failure / bilat hydro / nephrostomy - hyponatremia - psych d/o Recommendations - IVF - Renal f/u - check Fe - check OB - abx - stool cultures - EGD/Colon once better Subjective Allergies: Coded Allergies: PENICILLINS (Verified Allergy, Intermediate, rash, 07/28/12) BEET (Verified Allergy, Unknown, 10/01/19) PROPOFOL (Verified Allergy, Unknown, 10/01/19) Subjective above noted seen this am Objective Last 24 Hour Vital Signs Date Time Temp Pulse Resp B/P (MAP) Pulse Ox O2 Delivery O2 Flow Rate FiO2 10/06/19 16:00 112 10/06/19 16:00 98.1 108 20 147/86 (106) 98 10/06/19 12:00 97.8 112 20 157/100 (119) 96 10/06/19 12:00 112 10/06/19 09:00 Room Air 10/06/19 08:00 98.1 117 20 154/86 (108) 95 10/06/19 08:00 118 10/06/19 04:00 124 10/06/19 04:00 99.2 124 20 155/92 (113) 95 10/06/19 00:00 132 10/06/19 00:00 99.0 128 20 158/89 (112) 95 Intake and Output 10/05/19 10/06/19 19:00 07:00 Intake Total 1400 ml Output Total 5100 ml 1850 ml Balance -3700 ml -1850 ml Intake Oral 1400 ml Drainage Total 5100 ml 1850 ml Laboratory Tests 10/06/19 07:06: White Blood Count 20.8H, Red Blood Count 3.40L, Hemoglobin 9.2L, Hematocrit 25.8L, Mean Corpuscular Volume 76L, Mean Corpuscular Hemoglobin 27.2, Mean Corpuscular Hemoglobin Concent 35.8, Red Cell Distribution Width 12.2, Platelet Count 309, Mean Platelet Volume 6.2L, Neutrophils (%) (Auto) , Lymphocytes (%) ( Auto) , Monocytes (%) (Auto) , Eosinophils (%) (Auto) , Basophils (%) (Auto) , Differential Total Cells Counted 100, Neutrophils % (Manual) 88H, Lymphocytes % (Manual) 4L, Monocytes % (Manual) 6, Eosinophils % (Manual) 1, Basophils % ( Manual) 0, Band Neutrophils 1, Platelet Estimate Adequate, Platelet Morphology Normal, Hypochromasia 2+, Anisocytosis 1+, Microcytosis 1+, Spherocytes Rare, Sodium Level 139, Potassium Level 2.8L, Chloride Level 99, Carbon Dioxide Level 30, Anion Gap 10, Blood Urea Nitrogen 13, Creatinine 0.9, Estimat Glomerular Filtration Rate > 60, Glucose Level 138H, Calcium Level 8.8 10/06/19 07:15: Magnesium Level 0.8*L Height (Feet): 5 Height (Inches): 0.00 Weight (Pounds): 92 Objective WDWN NCAT supple CTA RRR Abd soft NT ND, b/l nephrostomies no edema Corazon Silva MD Oct 06, 2019 21:39
[2019-10-07] VITALS: BP 140/83
[2019-10-07] MEDS: 1/2NS w/KCl 20mEq 1000ml 1,000 ML IV SCH ×3 (01:19→10:49)
[2019-10-07] MEDS: LORazepam 1mg tab ORAL PRN (02:38)
[2019-10-07 04:00] VITALS: BP 135/80
[2019-10-07] MEDS: ceFAZolin 1gm/50ml Premix 50 ML IV SCH (05:48)
[2019-10-07] MEDS: metroNIDAZOLE 500mg tab ORAL SCH (05:48)
[2019-10-07 07:10] LABS: HEMATOCRIT 27.2 % (37.0-47.0); HEMOGLOBIN 9.4 G/DL (12.0-16.0); MEAN CORPUSCULAR VOLUME 77 FL (80-99); PLATELET COUNT 346 K/UL (150-450); RED BLOOD COUNT 3.51 M/UL (4.20-5.40); RED CELL DISTRIBUTION WIDTH 12.3 % (11.6-14.8)
--- NOTE | 2019-10-07 07:23 | NUR ---
HAND-OFF: Report given to DAXA Ash. Endorsed plan of care.
[2019-10-07 07:40] LABS: ANION GAP 7 mmol/L (5-15); BLOOD UREA NITROGEN 14 mg/dL (7-18); CARBON DIOXIDE 30 MMOL/L (21-32); CHLORIDE 98 MMOL/L (98-107); CREATININE 0.8 MG/DL (0.55-1.30); SODIUM 135 MMOL/L (136-145)
[2019-10-07 07:51] LABS: WHITE BLOOD COUNT 24.8 K/UL (4.8-10.8)
[2019-10-07 08:00] VITALS: BP 151/95
--- NOTE | 2019-10-07 08:10 | NUR ---
NURSE NOTES: Patient stable AOx4 ambulated to restroom. BL nephrostomy bags drained. 300mLs removed from each. Patient verbalizing she wants to leave. Informed that there is no discharge order yet. Verbalized understanding. RR even and unlabored. Side rails upx2, call light within reach, bed low and locked. Will continue to monitor.
--- NOTE | 2019-10-07 08:31 | NUR ---
NURSE NOTES: Critical Lab value for WBC of 24.8 reported at [address] Esther Martin and at 0830 to Andrea Martin.
--- NOTE | 2019-10-07 11:00 | NUR ---
NURSE NOTES: Spoke with Dr. Martin who stated if patient wants to leave it must be as AMA because she is not cleared for discharge. Patient is still medically unstable.
--- NOTE | 2019-10-07 11:54 | Infectious Diseases Prog Note ---
Assessment/Plan Assessment/Plan IMPRESSION: Pasteurella sepsis. Renal failure Bilateral hydronephrosis and hydroureter, Obstructive uropathy Abnormal vaginal bleeding, Penicillin allergy, Hypokalemia Hypomagnesemia Anemia, Thrombocytopenia, Emphysema, Cachexia. Leukocytosis worsening RECOMMENDATIONS: Change Cefazolin to PO Keflex CXR Urine culture Subjective ROS Limited/Unobtainable: Yes Psychiatric: Reports: other - pull out IV Allergies: Coded Allergies: PENICILLINS (Verified Allergy, Intermediate, rash, 07/28/12) BEET (Verified Allergy, Unknown, 10/01/19) PROPOFOL (Verified Allergy, Unknown, 10/01/19) Objective Vital Signs Last 24 Hour Vital Signs Date Time Temp Pulse Resp B/P (MAP) Pulse Ox O2 Delivery O2 Flow Rate FiO2 10/07/19 09:00 Room Air 10/07/19 08:00 97.8 118 20 151/95 (113) 97 10/07/19 08:00 123 10/07/19 04:00 114 10/07/19 04:00 98.5 114 19 135/80 (98) 95 10/07/19 00:00 121 10/07/19 00:00 98.7 121 18 140/83 (102) 94 10/06/19 21:00 Room Air 10/06/19 20:00 97.8 111 16 137/86 (103) 95 10/06/19 16:00 112 10/06/19 16:00 98.1 108 20 147/86 (106) 98 10/06/19 12:00 97.8 112 20 157/100 (119) 96 10/06/19 12:00 112 Height (Feet): 5 Height (Inches): 0.00 Weight (Pounds): 92 General Appearance: cachetic HEENT: mucous membranes moist Respiratory/Chest: normal breath sounds Cardiovascular: tachycardia Abdomen: soft, non tender Extremities: no edema Neurologic/Psychiatric: other - sleeping Musculoskeletal: atrophy Laboratory Tests Test 10/07/19 06:49 White Blood Count 24.8 K/UL (4.8-10.8) *H Red Blood Count 3.51 M/UL (4.20-5.40) L Hemoglobin 9.4 G/DL (12.0-16.0) L Hematocrit 27.2 % (37.0-47.0) L Mean Corpuscular Volume 77 FL (80-99) L Mean Corpuscular Hemoglobin 26.8 PG (27.0-31.0) L Mean Corpuscular Hemoglobin Concent 34.7 G/DL (32.0-36.0) Red Cell Distribution Width 12.3 % (11.6-14.8) Platelet Count 346 K/UL (150-450) Mean Platelet Volume 6.3 FL (6.5-10.1) L Neutrophils (%) (Auto) % (45.0-75.0) Lymphocytes (%) (Auto) % (20.0-45.0) Monocytes (%) (Auto) % (1.0-10.0) Eosinophils (%) (Auto) % (0.0-3.0) Basophils (%) (Auto) % (0.0-2.0) Neutrophils % (Manual) Pending Lymphocytes % (Manual) Pending Platelet Estimate Pending Platelet Morphology Pending Sodium Level 135 MMOL/L (136-145) L Potassium Level 4.0 MMOL/L (3.5-5.1) Chloride Level 98 MMOL/L (98-107) Carbon Dioxide Level 30 MMOL/L (21-32) Anion Gap 7 mmol/L (5-15) Blood Urea Nitrogen 14 mg/dL (7-18) Creatinine 0.8 MG/DL (0.55-1.30) Estimat Glomerular Filtration Rate > 60 mL/min (>60) Glucose Level 135 MG/DL (74-106) H Calcium Level 9.0 MG/DL (8.5-10.1) Magnesium Level 1.7 MG/DL (1.8-2.4) L Current Medications Medications (Trade) Dose Ordered Sig/Michael Route PRN Reason Start Time Stop Time Status Last Admin Dose Admin Cefazolin Sodium 50 ml @ 100 mls/hr EVERY 8 HOURS IV 10/06/19 14:00 10/13/19 13:59 10/07/19 05:48 Chlorpromazine (Thorazine) 50 mg QHS ORAL 10/01/19 21:15 10/31/19 21:14 10/06/19 21:11 Clonazepam (KlonoPIN) 1 mg DAILY ORAL 10/07/19 11:00 10/14/19 10:59 10/07/19 10:50 Dextrose (Dextrose 50%) 25 ml Q30M PRN IV Hypoglycemia 10/01/19 20:30 10/31/19 20:29 Dextrose (Dextrose 50%) 50 ml Q30M PRN IV Hypoglycemia 10/01/19 20:30 10/31/19 20:29 Ergocalciferol (Drisdol) 50,000 intlu QWEEK ORAL 10/06/19 16:00 11/05/19 15:59 10/06/19 17:25 Hydromorphone HCl (Dilaudid) 0.5 mg Q3H PRN IVP For Moderate Pain 10/03/19 22:00 10/10/19 21:59 10/06/19 18:30 Hydromorphone HCl (Dilaudid) 1 mg Q3H PRN IVP For Severe Pain 10/03/19 22:00 10/10/19 21:59 10/05/19 13:16 Lorazepam (Ativan) 1 mg HSPRN PRN ORAL For Anxiety 10/01/19 20:30 10/08/19 20:29 10/07/19 02:38 Metronidazole (Flagyl) 500 mg Q8HR ORAL 10/01/19 23:00 10/12/19 22:59 10/07/19 05:48 Mirtazapine (Remeron) 15 mg BEDTIME ORAL 10/07/19 21:00 11/06/19 20:59 Ondansetron HCl (Zofran) 4 mg Q6H PRN IVP Nausea & Vomiting 10/01/19 20:30 10/31/19 20:29 10/05/19 04:55 Sodium 1,000 ml @ 150 mls/hr Q6H40M IV 10/05/19 12:30 11/04/19 12:29 10/07/19 01:19 Temazepam (Restoril) 15 mg HSPRN PRN ORAL Insomnia 10/01/19 21:00 10/08/19 20:59 10/07/19 02:38 Gallito Martin MD Oct 07, 2019 11:54
[2019-10-07] MEDS ORDERED: Cephalexin 500mg cap ORAL SCH (13:00)
--- NOTE | 2019-10-07 13:00 | NUR ---
AMA: SEE AMA FORM. Patient adamant that she wants to leave. She was thoroughly explained that she is not stable enough for discharge and needs further treatment. Patient stated "I don't care. I'm leaving". Patient explained that she should go immediately to an ER if she has a recurrance in symptoms or if she changes her mind about not being in a hospital. Patient verbalized understanding. All belongings with patient. Dr. Martin aware that patient wanted to leave AMA.
--- NOTE | 2019-10-07 13:48 | NUR ---
NURSE NOTES: Spoke with Dr. Martin who stated if patient wants to leave it must be as AMA because she is not cleared for discharge. Patient is still medically unstable. Addendum: 10/07/19 at 1350 by NAOMI BARR RN Duplicate documentation with incorrect time stamp.
--- NOTE | 2019-10-07 17:17 | General Progress Note ---
Assessment/Plan Assessment/Plan: Assessment - Microcytic anemia - N/V, D, Abd pain - resolved - abdominal distention on exam - GNR bacteremia - Renal failure / bilat hydro / nephrostomy - improved - hyponatremia - psych d/o Recommendations - IVF - Renal f/u - abx - EGD/Colon declined by patient , understands risk of CA Subjective Allergies: Coded Allergies: PENICILLINS (Verified Allergy, Intermediate, rash, 07/28/12) BEET (Verified Allergy, Unknown, 10/01/19) PROPOFOL (Verified Allergy, Unknown, 10/01/19) Subjective above noted seen this am advised and offered EGD/Colon indications, including r/o CA, explained patient declined understands risks advised to d/w PMD as outpatient Objective Last 24 Hour Vital Signs Date Time Temp Pulse Resp B/P (MAP) Pulse Ox O2 Delivery O2 Flow Rate FiO2 10/07/19 09:00 Room Air 10/07/19 08:00 97.8 118 20 151/95 (113) 97 10/07/19 08:00 123 10/07/19 04:00 114 10/07/19 04:00 98.5 114 19 135/80 (98) 95 10/07/19 00:00 121 10/07/19 00:00 98.7 121 18 140/83 (102) 94 10/06/19 21:00 Room Air 10/06/19 20:00 97.8 111 16 137/86 (103) 95 Intake and Output 10/06/19 10/07/19 19:00 07:00 Intake Total 3100 ml 360 ml Output Total 1750 ml 900 ml Balance 1350 ml -540 ml Intake Oral 300 ml 360 ml IV Total 2800 ml Drainage Total 900 ml Other 1750 ml # Voids 3 # Bowel Movements 1 Laboratory Tests 10/07/19 06:49: White Blood Count 24.8*H, Red Blood Count 3.51L, Hemoglobin 9.4L, Hematocrit 27.2L, Mean Corpuscular Volume 77L, Mean Corpuscular Hemoglobin 26.8L, Mean Corpuscular Hemoglobin Concent 34.7, Red Cell Distribution Width 12.3, Platelet Count 346, Mean Platelet Volume 6.3L, Neutrophils (%) (Auto) , Lymphocytes (%) ( Auto) , Monocytes (%) (Auto) , Eosinophils (%) (Auto) , Basophils (%) (Auto) , Differential Total Cells Counted 100, Neutrophils % (Manual) 94H, Lymphocytes % (Manual) 4L, Monocytes % (Manual) 2, Eosinophils % (Manual) 0, Basophils % ( Manual) 0, Band Neutrophils 0, Platelet Estimate Adequate, Platelet Morphology Normal, Hypochromasia 1+, Anisocytosis 1+, Microcytosis 1+, Sodium Level 135L, Potassium Level 4.0, Chloride Level 98, Carbon Dioxide Level 30, Anion Gap 7, Blood Urea Nitrogen 14, Creatinine 0.8, Estimat Glomerular Filtration Rate > 60 , Glucose Level 135H, Calcium Level 9.0, Magnesium Level 1.7L Height (Feet): 5 Height (Inches): 0.00 Weight (Pounds): 92 Objective WDWN NCAT supple CTA RRR Abd soft NT ND, b/l nephrostomies no edema Corazon Silva MD Oct 07, 2019 17:17
--- NOTE | 2019-10-08 04:45 | Consultation ---
DATE OF CONSULTATION: 10/07/2019 CONSULTING PHYSICIAN: Raphael Crowley M.D. HISTORY OF PRESENT ILLNESS: The patient is a 63-year-old female with a history of depression and anxiety who has been admitted to the hospital for medical stabilization. The patient is admitted due to followup of diarrhea and vomiting. The patient today wanted to leave against medical advice. Continued anxiety. Unable to understand a meaningful history. The patient is very cachectic and is illogical. PAST PSYCHIATRIC HISTORY: She denies any history of psychiatric illness. However, she appears to be very anxious, is not on any psychotropic medication. PAST MEDICAL HISTORY: Significant for acute renal failure and anemia. ALLERGIES: Penicillin and propofol. SUBSTANCE ABUSE HISTORY: No known history of illicit drug use or alcohol. MENTAL STATUS EXAMINATION: The patient is alert and oriented times self, place, and situation. Mood is anxious. Affect is flat. Thought process is concrete. Thought content, no suicidal or homicidal ideation. Cognition is impaired. Insight and judgment are impaired. ASSESSMENT: [place] I Anxiety disorder. [place] II Deferred. [place] III Diarrhea and anemia. [place] IV Low. [place] V 40. PLAN: 1. The patient lacks capacity to make decisions and may not leave against medical advice. Discussed the case with a charge nurse as well as for the patient and the patient may not leave against medical advice. 2. I ordered medication to calm the patient down. Raphael Crowley M.D. DR: BLANK JOB#: [id number] CC:
--- NOTE | 2019-10-08 13:15 | Consultation ---
DATE OF CONSULTATION: 10/02/2019 CONSULTING PHYSICIAN: Kunal Anderson M.D. REQUESTING PHYSICIAN: Everardo Martin M.D. 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 HISTORY OF PRESENT ILLNESS: This is a 63-year-old white female who was admitted to the hospital because of malaise and diagnosis of vaginal bleeding. The patient was found to have BUN of 85 and creatinine of 9.7. CAT scan revealed severe obstruction on both sides with hydronephrosis for which this consultation was obtained. The patient denies any prior surgeries or medical condition other than started having vaginal bleeding in February of 2019 and because of her situation with schizophrenia and problem with her coverage, she was not evaluated and seen by any doctor till now. The patient does not have any flank pain however. She states that she has difficulty with urination. PAST HISTORY: No surgical history. Medical side, the patient is paranoid schizophrenic taking Zoloft, Thorazine. SOCIAL HISTORY: She is single at the present time but had three vaginal deliveries in the past. REVIEW OF SYSTEMS: The patient mainly complains of on and off vaginal bleeding and difficulty urination. PHYSICAL EXAMINATION: GENERAL: She is well developed, stated age. UROLOGICAL: Urological exam confined to the abdomen, which showed no organomegaly, tenderness, or mass. EXTERNAL GENITALIA: Negative. No CVA tenderness. 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 Park and her last visit was several months ago. RECOMMENDATIONS: Bilateral nephrostomy tube placement and later after stabilization to do the cystoscopy and try to insert the bilateral ureteral stent. Thank you very much for giving me opportunity to see the patient. Kunal Anderson M.D. DR: Leann JOB#: [id number] CC:
--- NOTE | 2019-10-08 18:00 | Progress Note ---
DATE: 10/07/2019 HOSPITAL CONSULTATION REPORT FOLLOWUP This is a 63-year-old white female who was admitted to the hospital with renal failure with BUN of 85 and creatinine of 9.7. The patient was scheduled for nephrostomy tube insertion bilaterally and her BUN and creatinine came down in matter of 2 days. The patient felt much better and was told to have a cystoscopic procedure and insertion of ureteral stent, but the patient refused and wanted to leave the hospital against medical advice. Kunal Anderson M.D. DR: MARIO JOB#: [id number] CC:
--- NOTE | 2019-10-09 09:09 | Discharge Summary ---
Discharge Summary Discharge Summary _ DATE OF ADMISSION: 10/01/2019 DATE OF DISCHARGE: 10/07/2019 Patient left AGAINST MEDICAL ADVICE REASON FOR ADMISSION: 63 years old female with past medical history of depression, anxiety, schizophrenia ,presented to emergency department with abdominal pain for 5 days. Pain was described as cramping, nonradiating ,7 out of 10, associated with vomiting and nonbloody diarrhea. Patient denied recent antibiotic use or recent traveling. Upon evaluation blood pressure was elevated 175/82 , otherwise vital signs were stable. Laboratory work-up revealed leukocytosis WBC 20.1, hemoglobin 10.3 , hematocrit 30.7, platelet count 318. Sodium 126, potassium 4.6. Chloride 89. BUN 91, creatinine 9.8. Glucose 116. AST 31, ALT 14, lipase 82. Urinalysis revealed no evidence of urinary tract infection. CT scan of the abdomen and pelvis revealed moderate to severe bilateral hydroureteronephrosis ; no obvious stone was seen. Urinary bladder not distended to account for it. Mild ascites. Emphysematous changes at the lung bases. Anasarca. Cachexia. No gallstones. No evidence of intrahepatic or extrahepatic biliary ductal dilation. Pelvic /transvaginal ultrasound revealed suspected fundal fibroid. No identification of the ovaries. Ascites. In emergency department patient received IV fluids , empiric antibiotics and subsequently admitted for further management CONSULTANTS: ID specialist Dr. Gallito Martin GI specialist Dr. Silva urologist Dr. Anderson psychiatrist Dr. Crowley [facility]SE: Patient admitted and started on the IV fluids and empiric antibiotics. GI and ID specialists followed. Blood culture revealed Pasteurella. Stool culture was negative. Patient remained afebrile, but with persistent leukocytosis. Antibiotic provided per ID specialist recommendation. Abdominal x-ray demonstrated no acute process. Patient noted to have microcytic anemia. Hemoglobin and hematocrit were closely monitored with goal to keep hemoglobin above 7 . Prior to signing AMA hemoglobin 9.4 , hematocrit 27.2. Patient declined EGD and colonoscopy, as advised by GI specialist. Patient verbalized understanding the risk of cancer. Renal parameters and electrolytes were closely monitored. Electrolytes further corrected as needed. Creatinine trended all the way up to 10 . Patient undergone placement of bilateral nephrostomy tube by interventional radiology on 10/03 due to acute bilateral obstructive uropathy. After placement of bilateral nephrostomy tubes , acute renal failure rapidly resolved and prior to signing AMA creatinine 0.8. Urologist seen and evaluated patient, and recommended cystoscopy and placement of ureteral stent , however patient refused procedure. Sodium, potassium, and magnesium were corrected, all stable prior to leaving AMA. Abnormal vaginal bleeding was likely due to fibroids. Patient was recommended [employer] evaluation . Per psychiatrist patient had anxiety disorder. Anxiolytic provided as needed. Patient decided to sign AGAINST MEDICAL ADVICE. The risks and consequences of signing AGAINST MEDICAL ADVICE were discussed with patient in detail. Patient verbalized understanding, nevertheless signed AMA form and left. FINAL DIAGNOSES: Acute renal failure Obstructive uropathy Colitis Pasteurella sepsis Renal failure Bilateral hydronephrosis and hydroureter Obstructive uropathy Microcytic anemia Nausea, vomiting and diarrhea with abdominal pain - resolved Emphysema Cachexia Thrombocytopenia Electrolyte imbalance : hypokalemia, hypomagnesemia, hyponatremia Abnormal vaginal bleeding I have been assigned to dictate discharge summary for this account. I was not involved in the patient's management. Jessica Lucas NP Oct 09, 2019 09:09
== END 2019-10-07 13:00 | disposition left against medical advice (07) | DRG 872 ==
LOC: EDUNIT# 14:54 → EDBD 14:54 → EMR 15:23 → 2E 16:12 → EDBEDREQ 18:41 → 2E 10-04 06:41
PROC: 0T9130Z Drainage of Left Kidney with Drainage Device, Percutaneous Approach (ICD-10-PCS; principal; 2019-10-03)
PROC: 0T9030Z Drainage of Right Kidney with Drainage Device, Percutaneous Approach (ICD-10-PCS; principal; 2019-10-03)
DX: A41.4 Sepsis due to anaerobes (principal); N17.9 Acute kidney failure, unspecified; N13.2 Hydronephrosis with renal and ureteral calculous obstruction; R64 Cachexia; Z68.1 Body mass index [BMI] 19.9 or less, adult; D69.6 Thrombocytopenia, unspecified; F17.200 Nicotine dependence, unspecified, uncomplicated; F41.9 Anxiety disorder, unspecified; K52.9 Noninfective gastroenteritis and colitis, unspecified; D50.9 Iron deficiency anemia, unspecified; J43.9 Emphysema, unspecified; E87.6 Hypokalemia; E83.42 Hypomagnesemia; N93.9 Abnormal uterine and vaginal bleeding, unspecified; Z88.0 Allergy status to penicillin; Z88.8 Allergy status to other drugs, medicaments and biological substances; N18.9 Chronic kidney disease, unspecified; F99 Mental disorder, not otherwise specified
CPT/HCPCS: 36415; 50432; 74018; 74176; 76770; 76830; 76856; 80048; 80053; 80061; 81003; 82306; 82962; 83036; 83540; 83550; 83605; 83690; 83735; 84443; 85007; 85025; 85610; 85730; 86850; 86900; 86901; 87040; 87045; 87181; 93005; 96361; 96365; 96368; 96375; 99285; J2405; J7030; J8499